=== PATIENT | female | born 1990 | race Caucasian/White ===

== ENCOUNTER → 2019-06-14 | Outpatient (CLI) | payer BC ==
[2019-06-14 15:46] LABS: HCT 37.3 % (34.0-46.0); HGB 12.3 gm/dL (11.4-16.0); MCH 29.1 pg (25.0-35.0); MCHC 32.9 g/dL (31.0-37.0); MCV 88.3 fL (80.0-100.0); Platelet Count 273 k/uL (150-450); RBC 4.23 m/uL (3.80-5.40); RDW 15.3 % (11.5-15.5); WBC 12.6 k/uL (3.8-10.6)
[2019-06-14 15:55] LABS: Uric Acid 4.9 mg/dL (2.9-7.7)
[2019-06-14 23:16] LABS: Total Volume 24 Hour,Urine 2100 mL
[2019-06-14 23:39] LABS: Total Protein 24 Hour,Urine 342.3 mg/24Hr
== END | disposition home or self-care (01) ==
LOC: LABWHC1 10:09 → MERGE 10:09
PROVIDERS: ATTEND Obstetrics & Gynecology Obstetrics
DX: O13.9 Gestational [pregnancy-induced] hypertension without significant proteinuria, unspecified trimester (principal)
CPT/HCPCS: 36415; 81050; 82575; 84156; 84450; 84460; 84550; 85027

== ENCOUNTER 2019-06-17 16:32 | Outpatient (CLI) | payer BC ==
[2019-06-17] MEDS ORDERED: BETAMET ACET-BETAMETH SOD PHOS 6 MG/ML VIAL IM STA (16:39)
--- NOTE | 2019-07-03 14:25 | P.MSEPDOC ---
Presenting Problems - Arrival Data Date of Arrival on Unit: 06/17/19 Time of Arrival on Unit: 16:32 Mode of Transport: Ambulatory - Complaint OB-Reason for Admission/Chief Complaint: Celestone Injection Comment: Pt sent from office for celestone, had NST and US at [facility] Medical History - Information : 4 Para: 0 Term: 0 : 0 Abortions: Spontaneous or Elective: 4 Number of Living Children: 0 - Gestational Age Gestational Age by NANDA (wks/days): 34 Weeks and 2 Days Physician Notification (Pre) - Physician Notified Physician/Practitioner Notifed:: Anupam Spoke With: Anupam New Order Received: Yes - Notification Comment Comment: Dr. Bo called prior to pts arrival, pt to have celestone inj, NST and US completed at [facility]. Disposition - Disposition OB Disposition: Discharge to home, Written follow up instructions reviewed Discharge Date: 06/17/19 Discharge Time: 16:50 I agree with the RN Medical Screening Exam: Yes Risk & Benefit of care provided described in d/c instruction: Yes Diagnosis: GESTATIONAL HTN W/O SIGNIFICANT PROTEINURIA, THIRD TRIMESTER
== END 2019-06-17 16:50 | disposition home or self-care (01) ==
LOC: FBPOP 16:32
PROVIDERS: ATTEND Obstetrics & Gynecology Obstetrics
DX: O13.3 Gestational [pregnancy-induced] hypertension without significant proteinuria, third trimester (principal); Z3A.34 34 weeks gestation of pregnancy

== ENCOUNTER 2019-06-18 17:16 | Inpatient (IN) | payer BC ==
[2019-06-18] MEDS ORDERED: LACTATED RINGERS 1,000 ML IV ONE (17:48)
[2019-06-18] MEDS ORDERED: ACETAMINOPHEN IV (For NPO) 1,000 MG in EMPTY BAG 1 BAG IVPB STA (17:50)
[2019-06-18] MEDS ORDERED: LABETALOL 100 MG TAB PO SCH (18:00)
[2019-06-18] MEDS ORDERED: BETAMET ACET-BETAMETH SOD PHOS 6 MG/ML VIAL IM ONE (18:00)
[2019-06-18 18:18] LABS: Appearance,Urine Clear (Clear); Bilirubin,Urine Negative (Negative); Blood,Urine Negative (Negative); Color,Urine Yellow; Glucose,Urine (UA) Negative (Negative); Ketones,Urine Negative (Negative); Leukocyte Esterase,Urine Negative (Negative); Nitrite,Urine Negative (Negative); PH, Urine 6.5 (5.0-8.0); Protein,Urine Trace (Negative); Specific Gravity,Urine 1.013 (1.001-1.035); Urobilinogen,Urine <2.0 mg/dL (<2.0)
[2019-06-18 18:19] LABS: Basophils # (A) 0.3 k/uL (0-0.2); Basophils % (A) 1 %; Eosinophils # (A) 0.1 k/uL (0-0.7); Eosinophils % (A) 1 %; HCT 35.4 % (34.0-46.0); HGB 11.9 gm/dL (11.4-16.0); Lymphocytes # (A) 2.8 k/uL (1.0-4.8); Lymphocytes % (A) 14 %; MCH 28.9 pg (25.0-35.0); MCHC 33.6 g/dL (31.0-37.0); Monocytes # (A) 1.1 k/uL (0-1.0); Monocytes % (A) 6 %; Neutrophils # (A) 15.1 k/uL (1.3-7.7); Neutrophils % (A) 75 %; Platelet Count 322 k/uL (150-450); RBC 4.11 m/uL (3.80-5.40); RDW 15.1 % (11.5-15.5)
[2019-06-18 18:25] LABS: ALT 34 U/L (9-52); AST 23 U/L (14-36); African American GFR (CKD) >90 (>60 ml/min/1.73 sqM); Blood Urea Nitrogen 10 mg/dL (7-17); LDH 473 U/L (313-618); Non-African American GFR(CKD) >90 (>60 ml/min/1.73 sqM); Uric Acid 5.1 mg/dL (3.7-7.4)
[2019-06-18 18:40] VITALS: BMI 26.9
[2019-06-19] MEDS ORDERED: LABETALOL 100 MG TAB PO SCH (07:00)
[2019-06-19 07:23] LABS: Basophils # (A) 0.1 k/uL (0-0.2); Basophils % (A) 1 %; Eosinophils % (A) 0 %; HCT 33.7 % (34.0-46.0); HGB 11.3 gm/dL (11.4-16.0); Lymphocytes # (A) 1.9 k/uL (1.0-4.8); Lymphocytes % (A) 11 %; MCH 29.7 pg (25.0-35.0); MCHC 33.7 g/dL (31.0-37.0); MCV 88.2 fL (80.0-100.0); Mean Platelet Volume 6.8; Monocytes # (A) 0.8 k/uL (0-1.0); Monocytes % (A) 5 %; Neutrophils # (A) 14.5 k/uL (1.3-7.7); Neutrophils % (A) 82 %; Platelet Count 276 k/uL (150-450); RBC 3.81 m/uL (3.80-5.40); WBC 17.8 k/uL (3.8-10.6)
[2019-06-19 07:27] LABS: ALT 37 U/L (9-52); AST 20 U/L (14-36); African American GFR (CKD) >90 (>60 ml/min/1.73 sqM); Blood Urea Nitrogen 12 mg/dL (7-17); LDH 445 U/L (313-618); Non-African American GFR(CKD) >90 (>60 ml/min/1.73 sqM); Uric Acid 4.6 mg/dL (3.7-7.4)
--- NOTE | 2019-06-19 08:46 | P.HPOB ---
History of Present Illness H&P Date: 06/19/19 Chief Complaint: IUP @ 34 4/7 weeks, gestational HTN This is a 29-year-old at 34-3/7 weeks presented to labor and delivery yesterday for her second Celestone injection. Patient is being watched for gestational hypertension. Patient stated she had a very busy day blood pressures were noted to be elevated 170s over 100s. Blood pressures were noted to improve in the triage 150s/80s. Patient was also complaining of a mild headache which she notes is not unusual for her she has had headaches throughout the . Patient noted good movement she denied any abdominal pain not associated with movement. heart tones were noted to be reactiv e, category 1. Initial preeclampsia labs were negative, trace protein on urine dip. Prior 24-hour urine done 2 days prior 334. Review of Systems Constitutional: Reports fatigue, Denies chills, Denies fever Ears, nose, mouth and throat: Denies headache Cardiovascular: Reports leg edema Respiratory: Denies dyspnea Gastrointestinal: Denies constipation, Denies diarrhea, Denies heartburn, Denies nausea, Denies vomiting Genitourinary: Reports Past Medical History Past Medical History: No Reported History History of Any Multi-Drug Resistant Organisms: None Reported Additional Past Surgical History / Comment(s): breast reduction Past Anesthesia/Blood Transfusion Reactions: No Reported Reaction Past Psychological History: No Psychological Hx Reported Smoking Status: Never smoker Past Alcohol Use History: Occasional Past Drug Use History: None Reported - Past Family History Father Family Medical History: Diabetes Mellitus, Hypertension Medications and Allergies Home Medications Medication Instructions Recorded Confirmed Type Pnv No.95/Ferrous Fum/Folic AC 1 tab PO DAILY 05/19/18 06/18/19 History [ Multivitamin Tablet] Vitamin B Complex 1 cap PO DAILY 05/19/18 06/18/19 History Aspirin [Children's Aspirin] 81 mg PO DAILY 03/26/19 06/18/19 History Labetalol [Trandate] 100 mg PO BID 06/18/19 06/18/19 History Allergies Allergy/AdvReac Type Severity Reaction Status Date / Time No Known Allergies Allergy Verified 06/17/19 16:38 Exam Osteopathic Statement: *. No significant issues noted on an osteopathic structural exam other than those noted in the History and Physical/Consult. 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 Patient is noted to have nonlabored breathing her heart has regular rate and rhythm her blood pressure is 139/78, abdomen is noted to be gravid and appropriate for gestational age, heart tones are category 1 on last NST, no contractions were noted. Patient does note trace lower extremity edema, cervical exam is deferred. Results Result Diagrams: 06/19/19 06:26 06/19/19 06:26 Abnormal Lab Results - Last 24 Hours (Table) 06/18/19 06/18/19 06/19/19 Range/Units 10:07 10:07 06:26 WBC 20.0 H 17.8 H (3.8-10.6) k/uL Hgb 11.3 L (11.4-16.0) gm/dL Hct 33.7 L (34.0-46.0) % Neutrophils # 15.1 H 14.5 H (1.3-7.7) k/uL Monocytes # 1.1 H (0-1.0) k/uL Basophils # 0.3 H (0-0.2) k/uL Urine Protein Trace H (Negative) Assessment and Plan (1) 34 weeks gestation of Current Visit: Yes Status: Acute Code(s): Z3A.34 - 34 WEEKS GESTATION OF SNOMED Code(s): 23918558 (2) Gestational HTN Current Visit: Yes Status: Acute Code(s): O13.9 - GESTATIONAL HTN W/O SI GNIFICANT PROTEINURIA, UNSP TRIMESTER SNOMED Code(s): 685077785 Plan: Labs are reviewed with the patient in this morning, she has responded well to labetalol overnight. Patient states she is feeling well in addition. No change in labs from yesterday to today. We'll monitor this morning, and anticipate discharge later stay on modified bedrest and continued labetalol 100 mg twice a day. We'll plan to reevaluate her clinical status around lunchtime today and make a decision for discharge versus other.
[2019-06-19 12:09] VITALS: BP 167/82; PULSE 97; RESP 16; TEMP 97.5
[2019-06-19] MEDS ORDERED: CALCIUM GLUCONATE 1 GM/10 ML VIAL IV PRN (13:18)
[2019-06-19] MEDS ORDERED: MAGNESIUM SULFATE-WATER PMX 4 GM in WATER FOR INJECTION 1 100ML.BAG IVPB ONE (13:18)
[2019-06-19] MEDS ORDERED: MAGNESIUM SULFATE-WATER PMX 4 GM in WATER FOR INJECTION 1 100ML.BAG IVPB STA (13:23)
--- NOTE | 2019-06-19 13:27 | P.PN ---
Subjective Progress Note Date: 06/19/19 Principal diagnosis: IUP @ 34 4/7 weeks, preeclampsia with severe features. This pleasant 29 -year-old 4 para 0030 at 34-3/7 weeks was admitted last night for elevated blood pressures and monitoring. Patient has received betamethasone 2 last dose was given last evening around 1700. Overnight patient did well on 100 mg of labetalol by mouth, this morning her blood p ressure was 150s over 80s prior to labetalol being given, around 11 she was noted to have blood pressures 167/82, 171/84. She denies headache or abdominal pain at this time. On evaluation the RN did note clonus. Patient states she is feeling well overall and is anxious over the news of transfer given her blood pressure. Transferring facility is contacted and does accept the transfer for preeclampsia with severe features. Magnesium bolus is started a 4 g with a maintenance dose of 2. Objective - Vital Signs Vital signs: Vital Signs Temp 97.5 F L 06/19/19 12:00 Pulse 97 06/19/19 12:00 Resp 16 06/19/19 12:00 BP 167/82 06/19/19 12:00 Pulse Ox 96 06/19/19 07:53 Intake & Output 06/18/19 06/19/19 06/19/19 18:59 06:59 18:59 Weight 73.482 kg Other: # Voids 3 - Constitutional General appearance: Present: average body habitus, cooperative, no acute distress - Respiratory Respiratory: bilateral: CTA - Cardiovascular Rhythm: regular - Gastrointestinal Gastrointestinal Comment(s): Gravid and appropriate for gestational age - Neurologic Neurologic Comment(s): Positive clonus - Psychiatric Psychiatric: Present: A&O x's 3, appropriate affect - Labs CBC & Chem 7: 06/19/19 06:26 06/19/19 06:26 Labs: Abnormal Lab Results - Last 24 Hours (Table) 06/18/19 06/18/19 06/19/19 Range/Units 10:07 10:07 06:26 WBC 20.0 H 17.8 H (3.8-10.6) k/uL Hgb 11.3 L (11.4-16.0) gm/dL Hct 33.7 L (34.0-46.0) % Neutrophils # 15.1 H 14.5 H (1.3-7.7) k/uL Monocytes # 1.1 H (0-1.0) k/uL Basophils # 0.3 H (0-0.2) k/uL Urine Protein Trace H (Negative) Assessment and Plan (1) 34 weeks gestation of Current Visit: Yes Status: Acute Code(s): Z3A.34 - 34 WEEKS GESTATION OF SNOMED Code(s): 42054753 (2) Gestational HTN Current Visit: Yes Status: Acute Code(s): O13.9 - GESTATIONAL HTN W/O SIGNIFICANT PROTEINURIA, UNSP TRIMESTER SNOMED Code(s): 141008343 (3) Preeclampsia Current Visit: Yes Status: Acute Code(s): O14.90 - UNSPECIFIED PRE- ECLAMPSIA, UNSPECIFIED TRIMESTER SNOMED Code(s): 822293978 Plan: Given elevated blood pressures and new onset clonus will plan transfer to [facility] is in [place]. Case was reviewed with the adjoining resident and staff physician does accept the transfer. Magnesium bolus is begun, and we will prepare her for transfer. Patient is informed transfer is secondary to gestational age and need for NICU services. Although upset patient does understand the need for transfer secondary to prematurity and preeclampsia with severe features.
[2019-06-19] MEDS ORDERED: MAGNESIUM SULFATE-WATER PMX 20 GM in WATER FOR INJECTION 1 500ML.BAG IV SCH (13:30)
== END 2019-06-19 14:22 | disposition short-term general hospital (02) | DRG 833 ==
LOC: FBPOP 17:16 → 4FBP 17:48 → OBSVTOIN 06-19 13:56
PROVIDERS: ADMIT Obstetrics & Gynecology Obstetrics; ATTEND Obstetrics & Gynecology Obstetrics
DX: O14.13 Severe pre-eclampsia, third trimester (principal); Z3A.34 34 weeks gestation of pregnancy; Z79.82 Long term (current) use of aspirin; Z82.49 Family history of ischemic heart disease and other diseases of the circulatory system; Z83.3 Family history of diabetes mellitus; Z79.899 Other long term (current) drug therapy
CPT/HCPCS: 59025; 81003; 82565; 83615; 84450; 84460; 84520; 84550; 85025; 99215

== ENCOUNTER → 2020-03-05 | Outpatient (CLI) | payer BC | END | disposition home or self-care (01) | LOC: LABWHC1 09:09 | PROVIDERS: ATTEND Obstetrics & Gynecology Obstetrics | DX: N92.5 Other specified irregular menstruation (principal) | CPT/HCPCS: 36415; 84702 ==

== ENCOUNTER → 2020-03-23 | Outpatient (CLI) | payer BC | END | disposition home or self-care (01) | LOC: LABWHC1 10:27 | PROVIDERS: ATTEND Pediatrics Pediatric Infectious Diseases | DX: Z11.59 Encounter for screening for other viral diseases (principal) | CPT/HCPCS: U0003; C9803 ==

== ENCOUNTER → 2020-03-24 | Outpatient (CLI) | payer BC | END | disposition home or self-care (01) | LOC: LABWHC1 14:05 | PROVIDERS: ATTEND Pediatrics Pediatric Infectious Diseases | DX: Z11.59 Encounter for screening for other viral diseases (principal) | CPT/HCPCS: U0003; C9803 ==

== ENCOUNTER → 2020-04-16 | Outpatient (CLI) | payer BC ==
--- NOTE | 2020-04-16 10:38 | US ---
EXAMINATION TYPE: Transabdominal DATE OF EXAM: 04/16/2020 10:22 AM COMPARISON: NONE CLINICAL HISTORY: O46.91 Bleeding spotting. Pt states light vaginal bleeding EXAM PERFORMED: Transabdominal (TA) EXAM MEASUREMENTS: GESTATIONAL AGE / DATING Physician Established: (9 weeks/4 days) EDC: 11/15/2020 Dates by LMP: Unknown Dates by First Scan: No prior Dates by Current Scan for: (10 weeks/4 days) EDC: 11/08/2020 MATERNAL ANATOMY Uterus: 9.3 x 6.2 x 7.1 cm Right Ovary: 2.8 x 1.5 x 1.6 cm Left Ovary: 3.2 x 2.3 x 3.1 Post CDS / Adnexa: wnl Presence of free fluid: No Presence of corpus luteal cyst: 2.1 x 1.6 x 2.2 cm Presence of subchorionic bleed: Possible small bleed= 1.7 x 0.4 x 1.5 cm GESTATION / SURVEY CRL: 2.4 10 weeks/ 4 days) MSD: wnl Yolk Sac (normal less than 6mm): 5mm Heart Rate: 160 bpm Rhythm: Normal IUP: Viable IUP Single, viable IUP/ Possible small sub-chorionic bleed, otherwise no significant abnormality visual ized Results called to Chuck at 's office at time of exam IMPRESSION: Single viable intrauterine of 10 weeks 4 days with a heart rate of 160 bpm. Small 1.7 cm condon bchorionic hemorrhage suspected.
== END | disposition home or self-care (01) ==
LOC: RADUSWWP 10:00
PROVIDERS: ATTEND Obstetrics & Gynecology Obstetrics
DX: O46.91 Antepartum hemorrhage, unspecified, first trimester (principal); Z3A.10 10 weeks gestation of pregnancy
CPT/HCPCS: 76801

== ENCOUNTER 2020-05-25 12:10 | Observation (INO) | payer BC ==
[2020-05-25] MEDS ORDERED: SODIUM CHLORIDE 0.9% 500 ML 500 ML IV ONE (12:40)
[2020-05-25 13:28] LABS: Basophils # (A) 0.1 k/uL (0-0.2); Basophils % (A) 1 %; Eosinophils # (A) 0.1 k/uL (0-0.7); Eosinophils % (A) 1 %; HGB 14.4 gm/dL (11.4-16.0); Lymphocytes # (A) 2.3 k/uL (1.0-4.8); Lymphocytes % (A) 17 %; MCH 28.7 pg (25.0-35.0); MCHC 33.6 g/dL (31.0-37.0); MCV 85.5 fL (80.0-100.0); Mean Platelet Volume 7.2; Monocytes # (A) 0.7 k/uL (0-1.0); Monocytes % (A) 5 %; Neutrophils % (A) 75 %; Platelet Count 332 k/uL (150-450); RBC 5.03 m/uL (3.80-5.40); RDW 13.3 % (11.5-15.5); WBC 13.3 k/uL (3.8-10.6)
--- NOTE | 2020-05-25 13:36 | ED ---
General Adult HPI - General Chief complaint: Abdominal Pain Stated complaint: Poss Appendix Time Seen by Provider: 05/25/20 12:39 Source: patient, RN notes reviewed, old records reviewed Mode of arrival: ambulatory Limitations: no limitations - History of Present Illness Initial comments: 29-year-old female currently 15 weeks presenting for evaluation of right lower quadrant abdominal pain. Patient was sent over by her public health director for evaluation of pain and concern for appendicitis. She had heart tones in the office which were within normal limits according to Dr. Bo. Patient developed abdominal pain and diarrhea yesterday evening approximately one hour after eating salad. She has persistent nausea throughout this . She denies fever. Pain is predominantly right lower quadrant. - Related Data Home Medications Medication Instructions Recorded Confirmed Pnv No.95/Ferrous Fum/Folic AC 1 tab PO DAILY 05/19/18 05/25/20 [ Multivitamin Tablet] Vitamin B Complex 1 cap PO DAILY 05/19/18 05/25/20 Aspirin [Children's Aspirin] 81 mg PO DAILY 03/26/19 05/25/20 valACYclovir [Valtrex] 500 mg PO DAILY PRN 05/25/20 05/25/20 Allergies Allergy/AdvReac Type Severity Reaction Status Date / Time No Known Allergies Allergy Verified 05/25/20 13:20 Review of Systems ROS Statement: Those systems with pertinent positive or pertinent negative responses have been documented in the HPI. ROS Other: All systems not noted in ROS Statement are negative. Past Medical History Past Medical History: No Reported History Additional Past Medical History / Comment(s): preeclampsia History of Any Multi-Drug Resistant Organisms: None Reported Additional Past Surgical History / Comment(s): breast reduction Past Anesthesia/Blood Transfusion Reactions: No Reported Reaction Past Psychological History: No Psychological Hx Reported Past Alcohol Use History: Occasional Past Drug Use History: None Reported - Past Family History Father Family Medical History: Diabetes Mellitus, Hypertension General Exam Limitations: no limitations General appearance: alert, in no apparent distress Head exam: Present: atraumatic, normocephalic Eye exam: Present: normal appearance, PERRL ENT exam: Present: mucous membranes dry Neck exam: Present: normal inspection. Absent: tenderness, meningismus Respiratory exam: Present: normal lung sounds bilaterally. Absent: respiratory distress, wheezes Cardiovascular Exam: Present: normal rhythm, tachycardia GI/Abdominal exam: Present: soft, tenderness (focal right lower quadrant tenderness to palpation). Absent: distended, guarding, rebound Extremities exam: Present: normal inspection, normal capillary refill. Absent: pedal edema, calf tenderness Neurological exam: Present: alert, oriented X3, CN II-XII intact. Absent: motor sensory deficit Psychiatric exam: Present: normal affect, normal mood Skin exam: Present: warm, dry, intact. Absent: cyanosis, diaphoretic Course Vital Signs 05/25/20 12:19 Temperature 98.9 F Pulse Rate 114 H Respiratory 20 Rate Blood Pressure 145/88 O2 Sat by Pulse 98 Oximetry Medical Decision Making - Medical Decision Making 29 -year-old female presenting with chief complaint of abdominal pain. Patient was sent in by her public health director for evaluation of appendicitis. She has a history and exam that are concerning for appendicitis. She is 15 weeks . Ultrasound is performed, shows mild right lower quadrant inflammatory change and dilated appendix at 14 mm. Patient is started on antibiotics. She has requested Dr. Dorantes who is able to evaluate the patient in the emergency department. - Lab Data Result diagrams: 05/25/20 13:08 05/25/20 13:08 Lab Results 05/25/20 05/25/20 05/25/20 Range/Units 13:08 13:08 13:08 WBC 13.3 H (3.8-10.6) k/uL RBC 5.03 (3.80-5.40) m/uL Hgb 14.4 (11.4-16.0) gm/dL Hct 43.0 (34.0-46.0) % MCV 85.5 (80.0-100.0) fL MCH 28.7 (25.0-35.0) pg MCHC 33.6 (31.0-37.0) g/dL RDW 13.3 (11.5-15.5) % Plt Count 332 (150-450) k/uL Neutrophils % 75 % Lymphocytes % 17 % Monocytes % 5 % Eosinophils % 1 % Basophils % 1 % Neutrophils # 10.0 H (1.3-7.7) k/uL Lymphocytes # 2.3 (1.0-4.8) k/uL Monocytes # 0.7 (0-1.0) k/uL Eosinophils # 0.1 (0-0.7) k/uL Basophils # 0.1 (0-0.2) k/uL PT 9.3 (9.0-12.0) sec INR 0.9 (<1.2) APTT 23.8 (22.0-30.0) sec Sodium (137-145) mmol/L Potassium (3.5-5.1) mmol/L Chloride (98-107) mmol/L Carbon Dioxide (22-30) mmol/L Anion Gap mmol/L BUN (7-17) mg/dL Creatinine (0.52-1.04) mg/dL Est GFR (CKD-EPI)AfAm (>60 ml/min/1.73 sqM) Est GFR (CKD-EPI)NonAf (>60 ml/min/1.73 sqM) Glucose (74-99) mg/dL Plasma Lactic Acid Corey (0.7-2.0) mmol/L Calcium (8.4-10.2) mg/dL Total Bilirubin (0.2-1.3) mg/dL AST (14-36) U/L ALT (4-34) U/L Alkaline Phosphatase (38-126) U/L Total Protein (6.3-8.2) g/dL Albumin (3.5-5.0) g/dL Amylase (30-110) U/L Lipase (23-300) U/L Urine Color Yellow Urine Appearance Cloudy H (Clear) Urine pH 7.5 (5.0-8.0) Ur Specific [place] 1.026 (1.001-1.035) Urine Protein Trace H (Negative) Urine Glucose (UA) Negative (Negative) Urine Ketones Trace H (Negative) Urine Blood Negative (Negative) Urine Nitrite Negative (Negative) Urine Bilirubin Negative (Negative) Urine Urobilinogen <2.0 (<2.0) mg/dL Ur Leukocyte Esterase Trace H (Negative) Urine RBC 5 (0-5) /hpf Urine WBC 3 (0-5) /hpf Ur Squamous Epith Cells 10 H (0-4) /hpf Calcium Oxalate Crystal Occasional H (None) /hpf Amorphous Sediment Rare H (None) /hpf Urine Bacteria Rare H (None) /hpf Hyaline Casts 1 (0-2) /lpf Urine Mucus Few H (None) /hpf 05/25/20 05/25/20 Range/Units 13:08 13:08 WBC (3.8-10.6) k/uL RBC (3.80-5.40) m/uL Hgb (11.4-16.0) gm/dL Hct (34.0-46.0) % MCV (80.0-100.0) fL MCH (25.0-35.0) pg MCHC (31.0-37.0) g/dL RDW (11.5-15.5) % Plt Count (150-450) k/uL Neutrophils % % Lymphocytes % % Monocytes % % Eosinophils % % Basophils % % Neutrophils # (1.3-7.7) k/uL Lymphocytes # (1.0-4.8) k/uL Monocytes # (0-1.0) k/uL Eosinophils # (0-0.7) k/uL Basophils # (0-0.2) k/uL PT (9.0-12.0) sec INR (<1.2) APTT (22.0-30.0) sec Sodium 138 (137-145) mmol/L Potassium 4.2 (3.5-5.1) mmol/L Chloride 106 (98-107) mmol/L Carbon Dioxide 23 (22-30) mmol/L Anion Gap 9 mmol/L BUN 12 (7-17) mg/dL Creatinine 0.72 (0.52-1.04) mg/dL Est GFR (CKD-EPI)AfAm >90 (>60 ml/min/1.73 sqM) Est GFR (CKD-EPI)NonAf >90 (>60 ml/min/1.73 sqM) Glucose 90 (74-99) mg/dL Plasma Lactic Acid Corey 0.8 (0.7-2.0) mmol/L Calcium 9.6 (8.4-10.2) mg/dL Total Bilirubin 0.8 (0.2-1.3) mg/dL AST 18 (14-36) U/L ALT 14 (4-34) U/L Alkaline Phosphatase 68 (38-126) U/L Total Protein 7.6 (6.3-8.2) g/dL Albumin 4.3 (3.5-5.0) g/dL Amylase 60 (30-110) U/L Lipase 61 (23-300) U/L Urine Color Urine Appearance (Clear) Urine pH (5.0-8.0) Ur Specific [place] (1.001-1.035) Urine Protein (Negative) Urine Glucose (UA) (Negative) Urine Ketones (Negative) Urine Blood (Negative) Urine Nitrite (Negative) Urine Bilirubin (Negative) Urine Urobilinogen (<2.0) mg/dL Ur Leukocyte Esterase (Negative) Urine RBC (0-5) /hpf Urine WBC (0-5) /hpf Ur Squamous Epith Cells (0-4) /hpf Calcium Oxalate Crystal (None) /hpf Amorphous Sediment (None) /hpf Urine Bacteria (None) /hpf Hyaline Casts (0-2) /lpf Urine Mucus (None) /hpf Disposition Clinical Impression: Acute appendicitis Disposition: ADMITTED IP TO THIS [facility] Condition: Stable Is patient prescribed a controlled substance at d/c from ED?: No Referrals: None,Stated [Primary Care Provider] - 1-2 days Decision to Admit Reason: Admit from EC Decision Date: 05/25/20 Decision Time: 14:24
[2020-05-25 13:40] LABS: ALT 14 U/L (4-34); AST 18 U/L (14-36); African American GFR (CKD) >90 (>60 ml/min/1.73 sqM); Albumin 4.3 g/dL (3.5-5.0); Alkaline Phosphatase 68 U/L (38-126); Amorphous Sediment,Urine Rare /hpf; Amylase 60 U/L (30-110); Anion Gap 9 mmol/L; Appearance,Urine Cloudy (Clear); Bacteria,Urine Rare /hpf; Bilirubin,Urine Negative (Negative); Blood Urea Nitrogen 12 mg/dL (7-17); Blood,Urine Negative (Negative); Calcium 9.6 mg/dL (8.4-10.2); Calcium Oxalate Crystals,Urine Occasional /hpf; Carbon Dioxide 23 mmol/L (22-30); Chloride 106 mmol/L (98-107); Color,Urine Yellow; Glucose 90 mg/dL (74-99); Glucose,Urine (UA) Negative (Negative); Hyaline Casts,Urine 1 /lpf (0-2); Ketones,Urine Trace (Negative); Leukocyte Esterase,Urine Trace (Negative); Mucus,Urine Few /hpf; Nitrite,Urine Negative (Negative); Non-African American GFR(CKD) >90 (>60 ml/min/1.73 sqM); PH, Urine 7.5 (5.0-8.0); Potassium 4.2 mmol/L (3.5-5.1); Protein,Urine Trace (Negative); RBC,Urine 5 /hpf (0-5); Sodium 138 mmol/L (137-145); Specific Gravity,Urine 1.026 (1.001-1.035); Squamous Epithelial Cell,Urine 10 /hpf (0-4); Total Bilirubin 0.8 mg/dL (0.2-1.3); Total Protein 7.6 g/dL (6.3-8.2); Urobilinogen,Urine <2.0 mg/dL (<2.0); WBC,Urine 3 /hpf (0-5)
--- NOTE | 2020-05-25 13:57 | US ---
EXAMINATION TYPE: US abdomen APPY DATE OF EXAM: 05/25/2020 COMPARISON: NONE CLINICAL HISTORY: rlq pain in . RLQ and RUQ pain x 2 days, slightly elevated WBC 13, patient is 15 weeks APPENDIX AP Diameter (normal < 6mm): 14 mm Measured outer wall to outer wall. Is the appendix seen in its entirety from the proximal cecum to distal end: no Is the appendix compressible: yes, compresses to 7mm which is upper limits of normal Does the appendix wall appear hypervascular: no Is an appendicolith present: no Is there inflammatory changes or free fluid present: no Tubular structure within RLQ appears to be enlarged appendix. peristalsing seen below structure not w ithin. IMPRESSION: 1. Appendix measures greater than 6 mm. Maximal dimension is 14 mm. Appendicitis would be in the diff erential diagnosis correlate clinically.
[2020-05-25] MEDS ORDERED: PIPERACILLIN-TAZOBACTAM 3.375 GM in SODIUM CHLORIDE 0.9% 100 ML IVPB STA (14:06)
[2020-05-25 14:09] LABS: INR 0.9 (<1.2); Partial Thromboplastin Time 23.8 sec (22.0-30.0); Prothrombin Time 9.3 sec (9.0-12.0)
[2020-05-25] MEDS ORDERED: NALOXONE 0.4 MG/ML 1 ML VIAL IV PRN ×2 (14:37→16:55)
--- NOTE | 2020-05-25 14:39 | US ---
EXAMINATION TYPE: US abdomen limited DATE OF EXAM: 05/25/2020 COMPARISON: 12/02/2012 CLINICAL HISTORY: ABD PAIN. RUQ pain EXAM MEASUREMENTS: Liver Length: 15.7 cm Gallbladder Wall: 0.1 cm CBD: 0.5 cm Right Kidney: 10.4 x 5.1 x 4.7 cm Pancreas: wnl Liver: 3.5cm hyperechoic medial left lobe lesion, probable hemangioma Gallbladder: 2 stones seen, 0.8cm, no wall thickness Evidence for sonographic Bernabe's sign: no CBD: wnl Right Kidney: wnl IMPRESSION: 1. There is a hyperechoic lesion left lobe of the liver measuring 3.5 cm. Most likely etiology is a h emangioma. However, finding was not seen on a prior CT scan 2012. Therefore, CT of the abdomen is rec ommended with hemangioma protocol 2. Cholelithiasis .
[2020-05-25] MEDS ORDERED: SODIUM CHLORIDE 0.9% 1,000 ML IV SCH (14:45)
[2020-05-25] MEDS ORDERED: HEPARIN SODIUM,PORCINE 5,000 UNIT/ML 1 ML VIAL SQ STA (15:01)
--- NOTE | 2020-05-25 15:18 | P.GSHP ---
History of Present Illness H&P Date: 05/25/20 This is a 29-year-old female who presented to the emergency department with a chief complaint of right lower quadrant pain which began yesterday 4 PM. Patient is she is currently 15 weeks . Patient has never had abdominal surgery before in the past. She denies any nausea vomiting she was having some diarrhea. She states she has not been hungry she has not eaten anything this morning. Patient states the pain has been pretty constant in her right lower quadrant hurts worse when she moves. Patient has no significant past medical history other than preeclampsia during her previous . Past Medical History Past Medical History: No Reported History Additional Past Medical History / Comment(s): preeclampsia History of Any Multi-Drug Resistant Organisms: None Reported Additional Past Surgical History / Comment(s): breast reduction Past Anesthesia/Blood Transfusion Reactions: No Reported Reaction Past Psychological History: No Psychological Hx Reported Past Alcohol Use History: Occasional Past Drug Use History: None Reported - Past Family History Father Family Medical History: Diabetes Mellitus, Hypertension Medications and Allergies Home Medications Medication Instructions Recorded Confirmed Type Pnv No.95/Ferrous Fum/Folic AC 1 tab PO DAILY 05/19/18 05/25/20 History [ Multivitamin Tablet] Vitamin B Complex 1 cap PO DAILY 05/19/18 05/25/20 History Aspirin [Children's Aspirin] 81 mg PO DAILY 03/26/19 05/25/20 History valACYclovir [Valtrex] 500 mg PO DAILY PRN 05/25/20 05/25/20 History Allergies Allergy/AdvReac Type Severity Reaction Status Date / Time No Known Allergies Allergy Verified 05/25/20 13:20 Surgical - Exam Osteopathic Statement: *. No significant issues noted on an osteopathic structural exam other than those noted in the History and Physical/Consult. Vital Signs Temp Pulse Resp BP Pulse Ox 98.9 F 114 H 20 145/88 98 05/25/20 12:19 05/25/20 12:05/25/20 12:05/25/20 12:05/25/20 12:19 - General well developed, well nourished, no distress - Eyes PERRL - Neck trachea midline - Respiratory normal expansion, normal respiratory effort - Cardiovascular Rhythm: regular - Abdomen Soft nondistended tender to palpation in the right lower quadrant positive rebound no rigidity no guarding - Neurologic normal coordination, normal sensation - Musculoskeletal normal gait - Psychiatric oriented to time, oriented to person, oriented to place Results - Labs 05/25/20 13:08 05/25/20 13:08 Abnormal Lab Results - Last 24 Hours (Table) 05/25/20 05/25/20 Range/Units 13:08 13:08 WBC 13.3 H (3.8-10.6) k/uL Neutrophils # 10.0 H (1.3-7.7) k/uL Urine Appearance Cloudy H (Clear) Urine Protein Trace H (Negative) Urine Ketones Trace H (Negative) Ur Leukocyte Esterase Trace H (Negative) Ur Squamous Epith Cells 10 H (0-4) /hpf Calcium Oxalate Crystal Occasional H (None) /hpf Amorphous Sediment Rare H (None) /hpf Urine Bacteria Rare H (None) /hpf Urine Mucus Few H (None) /hpf Diabetes panel 05/25/20 Range/Units 13:08 Sodium 138 (137-145) mmol/L Potassium 4.2 (3.5-5.1) mmol/L Chloride 106 (98-107) mmol/L Carbon Dioxide 23 (22-30) mmol/L BUN 12 (7-17) mg/dL Creatinine 0.72 (0.52-1.04) mg/dL Glucose 90 (74-99) mg/dL Calcium 9.6 (8.4-10.2) mg/dL AST 18 (14-36) U/L ALT 14 (4-34) U/L Alkaline Phosphatase 68 (38-126) U/L Total Protein 7.6 (6.3-8.2) g/dL Albumin 4.3 (3.5-5.0) g/dL Calcium panel 05/25/20 Range/Units 13:08 Calcium 9.6 (8.4-10.2) mg/dL Albumin 4.3 (3.5-5.0) g/dL Pituitary panel 05/25/20 Range/Units 13:08 Sodium 138 (137-145) mmol/L Potassium 4.2 (3.5-5.1) mmol/L Chloride 106 (98-107) mmol/L Carbon Dioxide 23 (22-30) mmol/L BUN 12 (7-17) mg/dL Creatinine 0.72 (0.52-1.04) mg/dL Glucose 90 (74-99) mg/dL Calcium 9.6 (8.4-10.2) mg/dL Adrenal panel 05/25/20 Range/Units 13:08 Sodium 138 (137-145) mmol/L Potassium 4.2 (3.5-5.1) mmol/L Chloride 106 (98-107) mmol/L Carbon Dioxide 23 (22-30) mmol/L BUN 12 (7-17) mg/dL Creatinine 0.72 (0.52-1.04) mg/dL Glucose 90 (74-99) mg/dL Calcium 9.6 (8.4-10.2) mg/dL Total Bilirubin 0.8 (0.2-1.3) mg/dL AST 18 (14-36) U/L ALT 14 (4-34) U/L Alkaline Phosphatase 68 (38-126) U/L Total Protein 7.6 (6.3-8.2) g/dL Albumin 4.3 (3.5-5.0) g/dL Assessment and Plan Assessment: Acute appendicitis in Plan: This diagnosis was discussed extensively with the patient and the patient's . Given the location duration and presentation of the patient's pain all along with an ultrasound that showed an appendix measuring 14 mm I discussed with the patient laparoscopic appendectomy. The risks benefits and alternatives to the procedure were discussed with the patient including risks of bleeding infection damage to surrounding tissue need for further operation. I discussed with her the specific risks of undergoing surgery while and undergoing anesthesia well does put her at higher risk and possible loss of . Patient stated she understood this. This case was also discussed the patient's director television Dr. Bo who was in agreement with the diagnosis and treatment plan. Patient will be admitted postoperatively to the OB unit for observation. We will proceed with laparoscopic appendectomy. Patient be kept nothing by mouth and started on IV antibiotics which were given in the emergency department. Further recommendations to follow
[2020-05-25] MEDS ORDERED: LACTATED RINGERS 1,000 ML IV ONE (15:32)
[2020-05-25] MEDS ORDERED: GLYCOPYRROLATE 0.2 MG/ML 2 ML VIAL ONE (15:35)
[2020-05-25] MEDS ORDERED: ROCURONIUM BROMIDE 10 MG/ML 5 ML VIAL IV ONE (15:35)
[2020-05-25] MEDS ORDERED: ONDANSETRON 4 MG/2 ML VIAL ONE (15:35)
[2020-05-25] MEDS ORDERED: PROPOFOL 10 MG/ML 20 ML VIAL IV ONE (15:35)
[2020-05-25] MEDS ORDERED: LIDOCAINE 1% INJ 10MG/ML (20 ML MDV) ONE (15:35)
[2020-05-25] MEDS ORDERED: HEPARIN SODIUM,PORCINE 5,000 UNIT/ML 1 ML VIAL ONE (15:35)
[2020-05-25] MEDS ORDERED: NEOSTIGMINE 1 MG/ML 10 ML VIAL ONE (15:35)
[2020-05-25] MEDS ORDERED: SUCCINYLCHOLINE CHLORIDE 100 MG/5 ML SYR IV ONE (15:35)
[2020-05-25] MEDS ORDERED: MIDAZOLAM 2 MG/2 ML VIAL ONE (15:35)
[2020-05-25] MEDS ORDERED: BUPIVACAINE (PF) 0.25% 30 ML VIAL SQ ONE ×2 (16:04)
[2020-05-25] MEDS ORDERED: fentaNYL (PF) 50 MCG/ML 2 ML AMP IVP ONE ×3 (16:45→17:02)
[2020-05-25] MEDS ORDERED: ONDANSETRON 4 MG/2 ML VIAL IVP ONE (16:53)
[2020-05-25] MEDS ORDERED: ONDANSETRON 4 MG/2 ML VIAL IVP PRN (16:55)
[2020-05-25] MEDS ORDERED: HYDROmorphone 0.5 MG/0.5 ML SYRINGE IVP PRN (16:55)
--- NOTE | 2020-05-25 16:55 | P.OP ---
Date of Procedure: 05/25/20 Preoperative Diagnosis: Acute appendicitis in Postoperative Diagnosis: Same Procedure(s) Performed: Laparoscopic appendectomy Anesthesia: ISAK Surgeon: Stevan Dorantes Estimated Blood Loss (ml): 5 Pathology: other (Appendix) Condition: stable Disposition: PACU Description of Procedure: Patient was brought to the operative suite remained in the supine position underwent general endotracheal anesthesia per Department of anesthesia she was prepped and draped in the usual sterile fashion timeout was performed correct patient correct procedure correct site was verified. A 5 mm incision was made at pal[place] point in the left upper quadrant. Using a 5 mm Visiport the abdomen was entered under direct visualization and insufflated. No injuries were noted. The abdomen was inspected the uterus was enlarged as expected for 15 week . Just inferior to the umbilicus a 5 mm incision was made and the port was placed under direct visualization. This was done being sure to avoid the uterus which is further down in the pelvis. A 12 mm incision was made in the left midabdomen and under direct visualization a 12 mm port was placed. The patient was placed head down right side up and the appendix is visualized noted to be acutely inflamed. The mesoappendix is taken down with the LigaSure device hemostasis was noted. The base of the appendix was stapled across at the base of the cecum using a 60 mm purple load Endo TRACEY stapler. Hemostasis was noted along the staple line. The gallbladder was inspected and noted to be healthy robins egg blue. The appendix was removed through the 12 mm port site in an Endo Catch bag and sent to pathology. Hemostasis was once again noted the 12 mm port site fascia was closed with an 0 Vicryl with the aid of a Sage-Augustus suture passer. The abdomen was desufflated all ports removed under direct visualization and the skin was closed with 4-0 Monocryl suture. Skin glue was applied patient tolerated the procedure well there are no apparent complications
[2020-05-25] MEDS ORDERED: ACETAMINOPHEN IV (For NPO) 1,000 MG in EMPTY BAG 1 BAG IVPB STA (18:04)
[2020-05-25] MEDS ORDERED: PIPERACILLIN-TAZOBACTAM 3.375 GM in SODIUM CHLORIDE 0.9% 100 ML IVPB SCH (20:00)
[2020-05-25 20:26] VITALS: RESP 16
[2020-05-25] MEDS: DOCUSATE 100 MG CAP PO SCH (21:03)
[2020-05-26] MEDS ORDERED: SIMETHICONE 80 MG CHEWABLE PO PRN (00:08)
[2020-05-26] MEDS: ACETAMINOPHEN TAB 325 MG TAB PO PRN ×2 (00:15→05:28)
[2020-05-26] MEDS: LACTATED RINGERS 1,000 ML IV SCH ×2 (01:19→06:39)
[2020-05-26 08:51] VITALS: BP 127/65; PULSE 78; TEMP 98
[2020-05-26] MEDS: DOCUSATE 100 MG CAP PO SCH (09:01)
[2020-05-26 09:26] LABS: Basophils % (A) 0 %; Eosinophils # (A) 0.1 k/uL (0-0.7); Eosinophils % (A) 1 %; HCT 34.3 % (34.0-46.0); HGB 11.5 gm/dL (11.4-16.0); Lymphocytes # (A) 2.1 k/uL (1.0-4.8); Lymphocytes % (A) 22 %; MCH 28.8 pg (25.0-35.0); MCHC 33.4 g/dL (31.0-37.0); Mean Platelet Volume 7.3; Monocytes # (A) 0.6 k/uL (0-1.0); Monocytes % (A) 6 %; Neutrophils # (A) 6.4 k/uL (1.3-7.7); Neutrophils % (A) 69 %; Platelet Count 280 k/uL (150-450); RBC 3.99 m/uL (3.80-5.40); RDW 13.9 % (11.5-15.5); WBC 9.3 k/uL (3.8-10.6)
== END 2020-05-26 10:55 | disposition home or self-care (01) ==
LOC: EC 12:10 → 4FBP 14:37
PROVIDERS: ADMIT Student in an Organized Health Care Education/Training Program; ATTEND Student in an Organized Health Care Education/Training Program
DX: O99.612 Diseases of the digestive system complicating pregnancy, second trimester (principal); K35.80 Unspecified acute appendicitis; Z3A.15 15 weeks gestation of pregnancy
CPT/HCPCS: 44970; 99285; 36415; 81025; 88304; 80053; 82150; 83605; 83690; 85025 ×2; 85610; 85730; 81001; 76705; G0378 ×2; J2543; J2250; J1644; J2710; J2405; J2001; J3010; J0131; J0330; J2704

== ENCOUNTER 2020-10-14 10:07 | Inpatient (IN) | payer BC ==
[2020-10-14 10:55] LABS: Appearance,Urine Cloudy (Clear); Bacteria,Urine Rare /hpf; Bilirubin,Urine Negative (Negative); Blood,Urine Negative (Negative); Color,Urine Light Yellow; Glucose,Urine (UA) Negative (Negative); Hyaline Casts,Urine 1 /lpf (0-2); Ketones,Urine Negative (Negative); Leukocyte Esterase,Urine Large (Negative); Nitrite,Urine Negative (Negative); Protein,Urine Negative (Negative); RBC,Urine 1 /hpf (0-5); Specific Gravity,Urine 1.005 (1.001-1.035); Squamous Epithelial Cell,Urine 5 /hpf (0-4); Urobilinogen,Urine <2.0 mg/dL (<2.0); WBC,Urine 6 /hpf (0-5)
[2020-10-14 11:07] LABS: Basophils % (A) 0 %; Eosinophils # (A) 0.1 k/uL (0-0.7); Eosinophils % (A) 1 %; HCT 38.9 % (34.0-46.0); HGB 13.2 gm/dL (11.4-16.0); Lymphocytes % (A) 17 %; MCH 29.2 pg (25.0-35.0); MCHC 33.8 g/dL (31.0-37.0); MCV 86.2 fL (80.0-100.0); Mean Platelet Volume 7.8; Monocytes # (A) 0.5 k/uL (0-1.0); Monocytes % (A) 4 %; Neutrophils # (A) 9.1 k/uL (1.3-7.7); Neutrophils % (A) 76 %; Platelet Count 243 k/uL (150-450); RBC 4.51 m/uL (3.80-5.40); WBC 11.9 k/uL (3.8-10.6)
[2020-10-14 11:09] LABS: Creatinine,Urine Random 31.8 mg/dL; Protein/Creatinine Ratio,Urine 0.566
[2020-10-14] MEDS: BETAMET ACET-BETAMETH SOD PHOS 6 MG/ML MDV IM SCH (11:11)
[2020-10-14 11:14] LABS: ALT 23 U/L (4-34); AST 23 U/L (14-36); African American GFR (CKD) >90 (>60 ml/min/1.73 sqM); Blood Urea Nitrogen 9 mg/dL (7-17); LDH 485 U/L (313-618); Non-African American GFR(CKD) >90 (>60 ml/min/1.73 sqM); Uric Acid 5.6 mg/dL (3.7-7.4)
[2020-10-14] MEDS ORDERED: LABETALOL 5 MG/ML VIAL MDV IVP PRN ×2 (13:01)
[2020-10-14] MEDS ORDERED: hydrALAZINE HCL 20 MG/ML 1 ML VIAL IVP PRN ×2 (13:01)
[2020-10-14] MEDS ORDERED: CITRIC ACID-SODIUM CITRATE 15 ML CUP PO ONE (13:03)
[2020-10-14] MEDS: LACTATED RINGERS 1,000 ML IV SCH ×2 (13:13→17:23)
[2020-10-14 13:28] LABS: INR 0.9 (<1.2); Prothrombin Time 9.4 sec (9.0-12.0)
[2020-10-14] MEDS ORDERED: fentaNYL (PF) 50 MCG/ML 2 ML AMP ONE (17:31)
[2020-10-14] MEDS ORDERED: MORPHINE SULFATE (PF) 0.3 MG/0.3 ML SYR ONE (17:31)
[2020-10-14] MEDS ORDERED: ONDANSETRON 4 MG/2 ML VIAL ONE (17:31)
[2020-10-14] MEDS ORDERED: KETOROLAC 15 MG/ML 1 ML VIAL ONE (17:31)
[2020-10-14] MEDS ORDERED: OXYTOCIN 10 UNIT/ML 1 ML VIAL ONE (17:31)
[2020-10-14] MEDS ORDERED: diphenhydrAMINE 50 MG CAP PO PRN (18:26)
[2020-10-14] MEDS ORDERED: SIMETHICONE 80 MG CHEWABLE PO PRN (18:26)
[2020-10-14] MEDS ORDERED: ACETAMINOPHEN IV (For NPO) 1,000 MG in EMPTY BAG 1 BAG IVPB ONE (18:26)
[2020-10-14] MEDS ORDERED: NALOXONE 0.4 MG/ML 1 ML VIAL IV PRN (18:26)
[2020-10-14] MEDS ORDERED: diphenhydrAMINE 25 MG CAP PO PRN (18:26)
[2020-10-14] MEDS ORDERED: diphenhydrAMINE 50 MG/ML 1 ML VIAL IVP PRN (18:26)
[2020-10-14] MEDS ORDERED: ZOLPIDEM 5 MG TAB PO PRN (18:26)
[2020-10-14] MEDS ORDERED: ONDANSETRON 4 MG/2 ML VIAL IVP PRN (18:26)
[2020-10-14] MEDS ORDERED: METOCLOPRAMIDE 5 MG/ML 2 ML VIAL IVP PRN (18:26)
[2020-10-14] MEDS ORDERED: OXYTOCIN 30 UNITS/500 ML NS 30 UNIT in SALINE 1 500ML.BAG IV SCH (18:30)
--- NOTE | 2020-10-14 18:30 | P.HPOB ---
History of Present Illness H&P Date: 10/14/20 Chief Complaint: IUP @ 35 3/7 weeks, severe preeclampsia This is a 30-year-old at 35-3/7 weeks that presented to the office this morning for routine visit. Patient underwent nonstress test which was felt to be reactive. Patient states she has been having elevated blood pressures at home 150s to 160s over 90s. Patient stated she had a headache last evening when she took her blood pressure. Patient slept well overnight and presented to the office. Normal blood pressure was noted in the office. Given patient's elevated blood pressures at home and headache patient was sent to OB triage for serial blood pressures, preeclampsia labs, nonstress test. Blood pressures on OB were noted to be significantly elevated 150s to 160s over high 90s. Patient did have a reactive NST. Preeclampsia labs were noted to be negative. Protein creatinine ratio was noted to be elevated at 0.5. Patient does have a history of a 34-6/7 weeks' delivery secondary to severe preeclampsia. Patient is noted to be in footling breech presentation In addition patient underwent appendectomy early in and was ultimately diagnosed with COVID in addition. On bloodwork patient is a blood type of A+, rubella status immune, B surface antigen negative, HIV negative, GBS was unknown but collected today. Review of Systems Constitutional: Reports fatigue, Denies chills, Denies fever Ears, nose, mouth and throat: Reports headache Cardiovascular: Reports leg edema Respiratory: Denies dyspnea Gastrointestinal: Reports nausea, Denies constipation, Denies diarrhea, Denies vomiting Genitourinary: Reports Past Medical History Past Medical History: No Reported History Additional Past Medical History / Comment(s): preeclampsia, kidney stones History of Any Multi-Drug Resistant Organisms: None Reported Additional Past Surgical History / Comment(s): breast reduction Past Anesthesia/Blood Transfusion Reactions: No Reported Reaction Smoking Status: Never smoker - Past Family History Father Family Medical History: Diabetes Mellitus, Hypertension Medications and Allergies Home Medications Medication Instructions Recorded Confirmed Type Pnv No.95/Ferrous Fum/Folic AC 1 tab PO DAILY 05/19/18 10/14/20 History [ Multivitamin Tablet] Vitamin B Complex 1 cap PO DAILY 05/19/18 10/14/20 History Aspirin [Children's Aspirin] 81 mg PO DAILY 03/26/19 10/14/20 History valACYclovir [Valtrex] 500 mg PO DAILY PRN 05/25/20 10/14/20 History Allergies Allergy/AdvReac Type Severity Reaction Status Date / Time No Known Allergies Allergy Verified 10/14/20 10:23 Exam Osteopathic Statement: *. No significant issues noted on an osteopathic structural exam other than those noted in the History and Physical/Consult. Intake and Output 10/13/20 10/14/20 10/14/20 22:59 06:59 14:59 Other: Weight 70.307 kg Targeted physical exam is performed and state in general this a well-nourished well-developed female in no acute distress, breathing is noted to be nonlabored, heart has regular rhythm, abdomen is gravid heart tones are noted to be category 1 and she is sherry regularly. Patient was checked in the office and noted be 2/50/high, footling breech was appreciated. Ultrasound confirmation of presentation was performed. Results Result Diagrams: 10/14/20 10:35 10/14/20 10:35 Abnormal Lab Results - Last 24 Hours (Table) 10/14/20 10/14/20 Range/Units 10:15 10:35 WBC 11.9 H (3.8-10.6) k/uL Neutrophils # 9.1 H (1.3-7.7) k/uL Urine Appearance Cloudy H (Clear) Ur Leukocyte Esterase Large H (Negative) Urine WBC 6 H (0-5) /hpf Ur Squamous Epith Cells 5 H (0-4) /hpf Urine Bacteria Rare H (None) /hpf Assessment and Plan (1) 35 weeks gestation of Current Visit: Yes Status: Acute Code(s): Z3A.35 - 35 WEEKS GESTATION OF SNOMED Code(s): 26226438 (2) Footling breech presentation Current Visit: Yes Status: Acute Code(s): O32.8XX0 - MATERNAL CARE FOR OTH MALPRESENTATION OF FETUS, UNSP SNOMED Code(s): 678732711 (3) Preeclampsia Current Visit: No Status: Acute Code(s): O14.90 - UNSPECIFIED PRE-ECLAMPSIA, UNSPECIFIED TRIMESTER SNOMED Code(s): 332578302 Plan: This is a 30-year-old at 35-3/7 weeks with severe preeclampsia. Labs and findings are reviewed with patient in detail. Multiple questions are answered. Given 's presentation a footling breech recommend primary C- section. Patient although discouraged understands. We will monitor blood pressures closely. Patient did receive 1 dose of Celestone.
[2020-10-14] MEDS ORDERED: IBUPROFEN IV 800 MG in SODIUM CHLORIDE 0.9% 250 ML IV ONE (18:36)
--- NOTE | 2020-10-14 18:36 | P.OP ---
Date of Procedure: 10/14/20 Preoperative Diagnosis: IUP at 35-3/7 weeks, severe preeclampsia, labor, footling breech presentation Postoperative Diagnosis: Same Procedure(s) Performed: Primary low transverse section Anesthesia: spinal Surgeon: Gabby Bo Engineering Equipment Operator #1: Mani Bullard Estimated Blood Loss (ml): 350 IV fluids (ml): 1,000 Urine output (ml): 200 Pathology: other (Placenta) Condition: stable Disposition: observation Indications for Procedure: This 30-year-old presents to OB after routine visit. Patient states her blood pressures were noted to be elevated at home 160s over 90s after she had a headache she took her blood pressure. Patient states she took Tylenol headache was relieved. Patient does have a history of severe preeclampsia and delivery at 34-5/7 weeks. Patient is known footling breech presentation. Blood pressures on triage noted to be 150s 160s over high 90s. Occasionally high 170s over 90s. Preeclampsia labs are noted to be negative, urine protein creatinine ratio noted to be 0.5. In addition patient was noted to be 2 cm in the office, 4 cm all on OB. Decision was made for primary secondary to labor, footling breech presentation, severe preeclampsia. Operative Findings: Normal uterus tubes and ovaries were appreciated, viable female delivered at 1752, weight of 5 lbs. 14 oz. Description of Procedure: Patient was taken back to the operating suite where spinal anesthesia was found be adequate by the anesthesia department. She was then prepped and draped in the normal sterile fashion in the dorsal supine position. A Pfannenstiel skin incision was made the Scalpel and carried through the underlying layer of fascia. The fascia was then incised in the midline and extended laterally. Superior aspect of the fascial incision was then grasped with [place] clamps, elevated and the underlying rectus muscles dissected off sharply, the inferior aspect of the fascial incision was then grasped alexis clamps, elevated and underlying rectus muscles dissected off sharply. Rectus muscles were in the midline the peritoneum was identified and entered. Bladder blade was then inserted. A bladder flap was then created using sharp and blunt dissection. Hysterotomy incision was made the sacrum was encountered in the infant was delivered in a breech presentation. The umbilical cord was doubly clamped and cut. The infant was handed off to the awaiting RN. The placenta was then removed manually and the uterus was cleared of all clots and debris. The uterus was then closed with 0 Vicryl in a running fashion from one lateral edge the other lateral edge. A second layer of suture was used as an imbricating layer. A small amount of bleeding was noted in the midportion of the uterus therefore a djszry-ed-axchi suture was used to obtain hemostasis. The pelvis then copiously irrigated and the uterus was returned to the abdomen. Hysterotomy incision was noted to be hemostatic, the gutters were cleared of all clots and debris. A small bleeding was noted on the bladder flap therefore Surgicel was placed along this area hemostasis was appreciated. The peritoneum was then loosely reapproximated and the fascia was closed 0 Vicryl in a running fashion from one lateral edge the other. The subcutaneous tissues. Found to be hemostatic and closed with 3-0 Vicryl in a running fashion. The skin was then closed with 4-0 Vicryl in a subcuticular fashion. Steri-Strips and sterile dressings were applied as needed. All counts were noted be correct 2 patient and infant tolerated procedure well and are resting comfortably.
[2020-10-14] MEDS ORDERED: CALCIUM GLUCONATE 1 GM/10 ML VIAL IV PRN (18:45)
[2020-10-14] MEDS ORDERED: MAGNESIUM SULFATE-WATER PMX 20 GM in WATER FOR INJECTION 1 500ML.BAG IV SCH (18:45)
[2020-10-14] MEDS ORDERED: MAGNESIUM SULFATE-WATER PMX 4 GM in WATER FOR INJECTION 1 100ML.BAG IVPB ONE (18:45)
[2020-10-14] MEDS: diphenhydrAMINE 50 MG/ML 1 ML VIAL IVP PRN (19:57)
[2020-10-14] MEDS: LABETALOL 100 MG TAB PO SCH (20:00)
[2020-10-14] MEDS ORDERED: NALBUPHINE 10 MG/ML (1 ML AMP) IM ONE (20:25)
[2020-10-14] MEDS ORDERED: NALBUPHINE 10 MG/0.5 ML (10 mL MDV) IM ONE (20:45)
[2020-10-14] MEDS: SENNOSIDES-DOCUSATE SODIUM 1 EACH TAB PO SCH (20:46)
[2020-10-15] MEDS: LACTATED RINGERS 1,000 ML IV SCH ×3 (00:19→10:51)
[2020-10-15] MEDS: diphenhydrAMINE 50 MG/ML 1 ML VIAL IVP PRN ×2 (04:35→10:44)
[2020-10-15] MEDS: MAGNESIUM SULFATE-WATER PMX 20 GM in WATER FOR INJECTION 1 500ML.BAG IV SCH ×3 (05:14→19:28)
--- NOTE | 2020-10-15 07:41 | P.PNOBGPC ---
Subjective - Subjective Principal diagnosis: PPD 1 LTCS footling breech, and severe preeclampsia Interval history: Patient did over well well last night. Magnesium continues to run. Brisk reflexes remained. She states her headache is improving and overall she is feeling better. Lochia is minimal. Blood pressures have been well controlled overnight. She is pumping currently. is in the nursery and improving. Patient reports: Reports appetite normal (Barker remains), Reports pain well controlled : doing well (In special care nursery) Objective - Vital Signs Latest vital signs: Vital Signs Temp Pulse Resp BP Pulse Ox 10/15/20 06:00 97.3 F L 97 16 106/63 98 10/15/20 04:00 97.8 F 114 H 16 120/74 10/15/20 02:00 96.3 F L 88 16 130/65 10/15/20 00:00 95.9 F L 98 16 130/68 10/14/20 23:00 95.9 F L 105 H 16 103/62 10/14/20 22:00 100 16 131/74 97 10/14/20 21:00 114 H 16 145/80 10/14/20 20:28 97.2 F L 122 H 17 140/79 97 10/14/20 19:58 117 H 17 154/80 10/14/20 19:26 97.9 F 117 H 16 156/70 96 10/14/20 19:12 113 H 18 170/70 10/14/20 18:58 101 H 17 152/69 96 10/14/20 18:53 117 H 17 184/116 96 10/14/20 18:28 97.9 F 115 H 18 137/79 97 10/14/20 13:26 96.6 F L 116 H 16 160/99 10/14/20 10:21 96.6 F L 116 H 16 160/99 Intake and Output 10/14/20 10/15/20 10/15/20 22:59 06:59 14:59 Intake Total 1575 596.667 Output Total 1075 1375 Balance 500 -778.333 Intake: Intake, IV Titration 1575 596.667 Amount Lactated Ringers 1,000 ml 1275 200 @ 125 mls/hr IV .Q8H [facility] Rx#:[id number] Magnesium Sulfate-Water 100 396.667 Pmx 20 gm In Water For Injection 1 500ml.bag @ 1 GM/HR 25 mls/hr IV .Q20H [facility] Rx#:[id number] Magnesium Sulfate-Water 100 Pmx 4 gm In Water For Injection 1 100ml.bag @ 300 mls/hr IVPB ONCE ONE Rx#:[id number] ceFAZolin 2 gm In Sodium 100 Chloride 0.9% 50 ml @ 100 mls/hr IVPB ONCE ONE Rx# :[id number] Output: Urine 1075 1375 Other: Voiding Method Indwelling Catheter Indwelling Catheter - Exam Extremities: Present: normal, edema Abdomen: Present: normal appearance Incision: Present: normal, intact Uterus: Present: normal, firm - Labs Labs: Abnormal Lab Results - Last 24 Hours (Table) 10/14/20 10/14/20 Range/Units 10:15 10:35 WBC 11.9 H (3.8-10.6) k/uL Neutrophils # 9.1 H (1.3-7.7) k/uL Urine Appearance Cloudy H (Clear) Ur Leukocyte Esterase Large H (Negative) Urine WBC 6 H (0-5) /hpf Ur Squamous Epith Cells 5 H (0-4) /hpf Urine Bacteria Rare H (None) /hpf Assessment and Plan (1) 35 weeks gestation of Current Visit: Yes Status: Acute Code(s): Z3A.35 - 35 WEEKS GESTATION OF SNOMED Code(s): 39663106 (2) Footling breech presentation Current Visit: Yes Status: Acute Code(s): O32.8XX0 - MATERNAL CARE FOR OTH MALPRESENTATION OF FETUS, UNSP SNOMED Code(s): 437698452 (3) Preeclampsia Current Visit: No Status: Acute Code(s): O14.90 - UNSPECIFIED PRE-ECLAMPSIA, UNSPECIFIED TRIMESTER SNOMED Code(s): 502189384 (4) S/P section Current Visit: Yes Status: Acute Code(s): Z98.891 - HISTORY OF UTERINE SCAR FROM PREVIOUS SURGERY SNOMED Code(s): 826076333 Plan: This 30-year-old status post primary for breech, severe preeclampsia and labor at 35-3/7 weeks is doing well this morning. She is overall doing well this morning, improvement in blood pressures noted with oral labetalol. We'll continue magnesium for 24 hours postdelivery and reevaluate at that time given her reflexes. Patient is complaining of significant urticaria therefore hydroxyzine is begun. We'll continue Barker management until magnesium is discontinued. The waiting preeclampsia labs this morning.
[2020-10-15] MEDS: PRENATAL VIT-IRON-FOLIC ACID 1 EACH CAP PO SCH (08:04)
[2020-10-15] MEDS: IBUPROFEN 600 MG TAB PO PRN ×3 (08:04→19:38)
[2020-10-15] MEDS: LABETALOL 100 MG TAB PO SCH (08:04)
[2020-10-15] MEDS: SENNOSIDES-DOCUSATE SODIUM 1 EACH TAB PO SCH ×2 (08:04→19:38)
[2020-10-15] MEDS: hydrOXYzine HCL 10 MG TAB PO SCH (08:24)
[2020-10-15] MEDS: BETAMET ACET-BETAMETH SOD PHOS 6 MG/ML MDV IM SCH (12:41)
[2020-10-15] MEDS: ACETAMINOPHEN TAB 325 MG TAB PO PRN ×2 (12:50→18:21)
[2020-10-15 16:18] LABS: Basophils % (A) 0 %; Eosinophils # (A) 0.1 k/uL (0-0.7); Eosinophils % (A) 0 %; HCT 33.2 % (34.0-46.0); HGB 11.2 gm/dL (11.4-16.0); Lymphocytes # (A) 2.1 k/uL (1.0-4.8); Lymphocytes % (A) 14 %; MCH 29.6 pg (25.0-35.0); MCHC 33.7 g/dL (31.0-37.0); MCV 87.9 fL (80.0-100.0); Mean Platelet Volume 8.4; Monocytes # (A) 0.9 k/uL (0-1.0); Monocytes % (A) 6 %; Neutrophils # (A) 11.5 k/uL (1.3-7.7); Neutrophils % (A) 78 %; Platelet Count 255 k/uL (150-450); RBC 3.78 m/uL (3.80-5.40); RDW 14.9 % (11.5-15.5); WBC 14.7 k/uL (3.8-10.6)
[2020-10-15 16:26] LABS: Uric Acid 4.8 mg/dL (3.7-7.4)
[2020-10-16] MEDS: diphenhydrAMINE 50 MG/ML 1 ML VIAL IVP PRN (00:01)
[2020-10-16] MEDS: MAGNESIUM SULFATE-WATER PMX 20 GM in WATER FOR INJECTION 1 500ML.BAG IV SCH (05:52)
[2020-10-16] MEDS: SENNOSIDES-DOCUSATE SODIUM 1 EACH TAB PO SCH (07:41)
[2020-10-16] MEDS: IBUPROFEN 600 MG TAB PO PRN ×3 (07:42→21:44)
[2020-10-16] MEDS: PRENATAL VIT-IRON-FOLIC ACID 1 EACH CAP PO SCH (07:42)
[2020-10-16] MEDS: LABETALOL 100 MG TAB PO SCH ×3 (07:42→21:44)
[2020-10-16] MEDS: hydrOXYzine HCL 10 MG TAB PO SCH ×2 (07:58→12:11)
--- NOTE | 2020-10-16 10:28 | P.PNOBGPC ---
Subjective - Subjective Principal diagnosis: Preeclampsia Interval history: Magnesium sulfate is discontinued this morning. She had been complaining of significant fatigue and nausea and weakness through the night especially when up to the nursery. She denies headaches, visual changes, abdominal pain. Pain is well-controlled with oral ibuprofen. Lochia is minimal. She started feeling better in the last 1 hour after magnesium was discontinued. Blood pressures have been on 110s/70s through the night. Patient reports: Reports appetite normal, Reports voiding normally (Catheter discontinued), Reports pain well controlled, Reports ambulating normally : doing well (In special care nursery for gestational age) Objective - Vital Signs Latest vital signs: Vital Signs Temp Pulse Resp BP Pulse Ox 10/16/20 09:41 94 138/75 10/16/20 07:50 96.2 F L 90 16 129/72 97 10/16/20 06:00 80 16 119/65 10/16/20 05:00 89 16 116/64 10/16/20 04:00 98.1 F 79 16 118/64 99 10/16/20 03:00 75 16 112/68 10/16/20 02:00 83 17 112/67 98 10/16/20 01:00 78 16 121/63 10/16/20 00:00 73 16 119/65 10/15/20 22:00 95.5 F L 79 16 128/60 10/15/20 20:00 87 16 130/73 10/15/20 19:00 80 16 113/61 10/15/20 18:00 86 16 154/68 98 10/15/20 16:00 97.0 F L 85 16 112/62 97 10/15/20 14:00 86 16 126/65 99 10/15/20 12:00 95.7 F L 88 16 99/54 98 Intake and Output 10/15/20 10/16/20 10/16/20 22:59 06:59 14:59 Intake Total 1500 1500 200 Output Total 1200 845 750 Balance 300 655 -550 Intake: IV 500 1000 Lactated Ringers 1,000 ml 300 600 @ 125 mls/hr IV .Q8H [facility] Rx#:[id number] Magnesium Sulfate-Water 200 400 Pmx 20 gm In Water For Injection 1 500ml.bag @ 1 GM/HR 25 mls/hr IV .Q20H [facility] Rx#:[id number] Intake, IV Titration 1000 500 200 Amount Lactated Ringers 1,000 ml 300 200 @ 125 mls/hr IV .Q8H [facility] Rx#:[id number] Magnesium Sulfate-Water 700 500 Pmx 20 gm In Water For Injection 1 500ml.bag @ 2 GM/HR 50 mls/hr IV .Q10H [facility] Rx#:[id number] Output: Urine 1200 845 750 Other: Voiding Method Incontinent Indwelling Catheter Indwelling Catheter - Exam Extremities: Present: normal. Absent: edema Abdomen: Present: normal appearance, soft. Absent: tenderness Incision: Present: normal, dry, intact. Absent: erythematous Uterus: Present: normal, firm. Absent: tenderness - Labs Labs: Abnormal Lab Results - Last 24 Hours (Table) 10/15/20 Range/Units 16:08 WBC 14.7 H (3.8-10.6) k/uL RBC 3.78 L (3.80-5.40) m/uL Hgb 11.2 L (11.4-16.0) gm/dL Hct 33.2 L (34.0-46.0) % Neutrophils # 11.5 H (1.3-7.7) k/uL Assessment and Plan (1) 35 weeks gestation of Current Visit: Yes Status: Acute Code(s): Z3A.35 - 35 WEEKS GESTATION OF SNOMED Code(s): 00258052 (2) Footling breech presentation Current Visit: Yes Status: Acute Code(s): O32.8XX0 - MATERNAL CARE FOR OTH MALPRESENTATION OF FETUS, UNSP SNOMED Code(s): 743030111 (3) S/P section Current Visit: Yes Status: Acute Code(s): Z98.891 - HISTORY OF UTERINE SCAR FROM PREVIOUS SURGERY SNOMED Code(s): 329872496 Plan: Postop day 1 status post primary low transverse section secondary to fo otling breech and symptomatic preeclampsia. Magnesium sulfate discontinued this morning. Blood pressures were stable throughout the night. She is asymptomatic at this time. She is on labetalol 100 mg twice a day. Will monitor blood pressures and symptomatology closely. Otherwise routine care.
[2020-10-16] MEDS: ACETAMINOPHEN TAB 325 MG TAB PO PRN ×2 (12:09→16:58)
[2020-10-16] MEDS: LACTATED RINGERS 1,000 ML IV SCH ×2 (12:10→12:11)
[2020-10-17] MEDS: SENNOSIDES-DOCUSATE SODIUM 1 EACH TAB PO SCH ×3 (00:07→21:09)
[2020-10-17] MEDS: hydrOXYzine HCL 10 MG TAB PO SCH ×3 (00:07→21:20)
[2020-10-17] MEDS: IBUPROFEN 600 MG TAB PO PRN ×3 (05:15→20:35)
[2020-10-17] MEDS: HYDROcodone/APAP 5-325MG 1 EACH TAB PO PRN ×2 (08:22→15:26)
[2020-10-17] MEDS: LABETALOL 100 MG TAB PO SCH ×2 (09:38→21:09)
[2020-10-17] MEDS: PRENATAL VIT-IRON-FOLIC ACID 1 EACH CAP PO SCH (09:38)
--- NOTE | 2020-10-17 09:54 | P.PNOBGPC ---
Subjective - Subjective Principal diagnosis: Preeclampsia Interval history: Feeling significantly better over the last 24 hours. Pumping successfully. Denies headaches, visual changes, nausea, vomiting, abdominal pain. Minimal swelling. Ambulating and voiding without difficulty. Patient reports: Reports appetite normal, Reports voiding normally, Reports pain well controlled [place]: doing well Objective - Vital Signs Latest vital signs: Vital Signs Temp Pulse Resp BP Pulse Ox 10/17/20 08:00 96.9 F L 82 16 132/75 10/17/20 03:00 71 16 125/75 10/16/20 23:00 88 16 137/79 98 10/16/20 19:00 96.6 F L 87 16 121/57 98 10/16/20 15:28 96.6 F L 83 16 140/67 100 10/16/20 12:01 92.2 F L 88 16 140/64 98 Intake and Output 10/16/20 10/17/20 10/17/20 22:59 06:59 14:59 Intake Total 600 Balance 600 Intake: Oral 600 Other: # Voids 1 1 - Exam Extremities: Present: normal. Absent: tenderness, edema Abdomen: Present: normal appearance, soft. Absent: distention, tenderness Incision: Present: normal, dry, intact. Absent: erythematous Uterus: Present: normal, firm Assessment and Plan (1) 35 weeks gestation of Current Visit: Yes Status: Acute Code(s): Z3A.35 - 35 WEEKS GESTATION OF SNOMED Code(s): 76541724 (2) Footling breech presentation Current Visit: Yes Status: Acute Code(s): O32.8XX0 - MATERNAL CARE FOR OTH MALPRESENTATION OF FETUS, UNSP SNOMED Code(s): 018236425 (3) S/P section Current Visit: Yes Status: Acute Code(s): Z98.891 - HISTORY OF UTERINE SCAR FROM PREVIOUS SURGERY SNOMED Code(s): 778691112 (4) Preeclampsia Current Visit: No Status: Acute Code(s): O14.90 - UNSPECIFIED PRE-ECLAMPSIA, UNSPECIFIED TRIMESTER SNOMED Code(s): 319242741 Plan: Postoperative day 3 status post primary low transverse section for preeclampsia and footling breech presentation. Recovering well. Blood pressure stable on labetalol 100 mg by mouth twice a day. Probable discharge home tomorrow.
[2020-10-18] MEDS: HYDROcodone/APAP 5-325MG 1 EACH TAB PO PRN ×2 (00:12→07:44)
[2020-10-18] MEDS: IBUPROFEN 600 MG TAB PO PRN (04:40)
[2020-10-18] MEDS: SENNOSIDES-DOCUSATE SODIUM 1 EACH TAB PO SCH (07:44)
--- NOTE | 2020-10-18 08:28 | P.DS ---
Providers Date of admission: 10/14/20 12:51 Expected date of discharge: 10/18/20 Attending physician: Gabby Bo Primary care physician: Stated None - Discharge Diagnosis(es) (1) 35 weeks gestation of Current Visit: Yes Status: Acute (2) Footling breech presentation Current Visit: Yes Status: Acute (3) Preeclampsia Current Visit: No Status: Acute (4) S/P section Current Visit: Yes Status: Acute Hospital Course: This is a 30-year-old at 35-3/7 weeks that presented to the hospital on Saturday 10/14 for blood pressure monitoring. Patient had noted headache overnight and has a history of severe preeclampsia. Blood pressure was noted to be elevated on triage, and diagnosis of severe preeclampsia was made. In addition patient was complaining of contractions and didn't make cervical change from 2 cm to 4 seconds. Infant was noted to be in footling breech presentation therefore primary was performed. For details on the please see the operative report. Patient's postoperative course was complicated by magnesium infusion, preeclampsia labs were noted to be negative throughout her hospital stay. Patient is currently feeling well and blood pressures are controlled on labetalol 100 mg twice daily. Patient denies headache or abdominal pain. Patient states her pain is well-controlled. She is pumping as her remains in special care nursery on 2 L of oxygen. She states her lochia is minimal. She states she is tolerating a regular diet without nausea or vomiting. She is due to be discharged home today. Patient Condition at Discharge: Good Plan - Discharge Summary New Discharge Prescriptions: No Action Vitamin B Complex 1 cap PO DAILY Pnv No.95/Ferrous Fum/Folic AC [ Multivitamin Tablet] 1 tab PO DAILY Aspirin [Children's Aspirin] 81 mg PO DAILY valACYclovir [Valtrex] 500 mg PO DAILY PRN PRN Reason: Cold Sores Discharge Medication List Pnv No.95/Ferrous Fum/Folic AC [ Multivitamin Tablet] 1 tab PO DAILY 05/19/18 [History] Vitamin B Complex 1 cap PO DAILY 05/19/18 [History] Aspirin [Children's Aspirin] 81 mg PO DAILY 03/26/19 [History] valACYclovir [Valtrex] 500 mg PO DAILY PRN 05/25/20 [History] Follow up Appointment(s)/Referral(s): Gabby Bo DO [Doctor of Osteopathic Medicine] - 1 Week Patient Instructions/Handouts: (DC), (GEN) Activity/Diet/Wound Care/Special Instructions: Patient is to call the office with any concerns prior to her postop appointment on Sunday. We will monitor blood pressures closely. Should she have any conc erns with fever or foul-smelling lochia increased bleeding headache or signs of preeclampsia she is to call and be seen sooner. Discharge Disposition: HOME SELF-CARE
[2020-10-18 08:29] VITALS: BP 152/88; PULSE 74; RESP 15; TEMP 98
[2020-10-18] MEDS: LABETALOL 100 MG TAB PO SCH (09:56)
== END 2020-10-18 10:30 | disposition home or self-care (01) | DRG 786 ==
LOC: FBPOP 10:07 → 4FBP 12:51
PROVIDERS: ADMIT Obstetrics & Gynecology Obstetrics; ATTEND Obstetrics & Gynecology Obstetrics
PROC: 10D00Z1 Extraction of Products of Conception, Low, Open Approach (ICD-10-PCS; principal; 2020-10-14 17:00)
DX: O32.8XX0 Maternal care for other malpresentation of fetus, not applicable or unspecified (principal); O60.14X0 Preterm labor third trimester with preterm delivery third trimester, not applicable or unspecified; O14.14 Severe pre-eclampsia complicating childbirth; Z86.19 Personal history of other infectious and parasitic diseases; Z92.89 Personal history of other medical treatment; Z37.0 Single live birth; Z3A.35 35 weeks gestation of pregnancy; Z79.82 Long term (current) use of aspirin; Z82.49 Family history of ischemic heart disease and other diseases of the circulatory system; Z83.3 Family history of diabetes mellitus; Z87.442 Personal history of urinary calculi; Z90.49 Acquired absence of other specified parts of digestive tract; Z86.16 Personal history of COVID-19
CPT/HCPCS: 59025; 81001; 82565; 82570; 83615; 84156; 84450; 84460; 84520; 84550; 85025; 85610; 86850; 86900; 86901; 88307

== ENCOUNTER → 2020-11-01 | Outpatient (CLI) | payer BC ==
[2020-11-01 14:37] LABS: Basophils # (A) 0.05 X 10*3/uL (0.00-0.10); Basophils % (A) 0.8 %; Eosinophils # (A) 0.21 X 10*3/uL (0.04-0.35); Eosinophils % (A) 3.2 %; HCT 38.1 % (37.2-46.3); HGB 12.4 g/dL (12.0-15.0); Lymphocytes # (A) 2.55 X 10*3/uL (0.90-5.00); Lymphocytes % (A) 38.9 %; MCH 28.7 pg (27.0-32.0); MCHC 32.5 g/dL (32.0-37.0); MCV 88.2 fL (80.0-97.0); Mean Platelet Volume 10.3 fL (9.5-12.2); Monocytes # (A) 0.62 X 10*3/uL (0.20-1.00); Monocytes % (A) 9.5 %; Neutrophils % (A) 47.3 %; Platelet Count 441 X 10*3/uL (140-440); RBC 4.32 X 10*6/uL (4.10-5.20); WBC 6.55 X 10*3/uL (4.50-10.00)
[2020-11-01 16:44] LABS: Uric Acid 6.6 mg/dL (2.9-7.7)
== END | disposition home or self-care (01) ==
LOC: LABWHC1 08:31
PROVIDERS: ATTEND Obstetrics & Gynecology Obstetrics
DX: I10 Essential (primary) hypertension (principal); R51.9 Headache, unspecified; R42 Dizziness and giddiness; R55 Syncope and collapse; N93.9 Abnormal uterine and vaginal bleeding, unspecified
CPT/HCPCS: 36415; 84443; 84450; 84460; 84482; 84550; 85025

== ENCOUNTER → 2020-11-03 | Outpatient (CLI) | payer BC ==
--- NOTE | 2020-11-03 20:00 | ECHOF ---
Referral Reason:[id number] R55 MEASUREMENTS -------- HEIGHT: 165.1 cm WEIGHT: 65.8 kg BP: RVIDd: 2.7 cm (< 3.3) IVSd: 0.9 cm (0.6 - 1.1) LVIDd: 4.8 cm (3.9 - 5.3) LVPWd: 0.8 cm (0.6 - 1.1) IVSs: 1.1 cm LVIDs: 3.4 cm LVPWs: 1.2 cm LA Diam: 2.8 cm (2.7 - 3.8) LAESV Index (A-L): 19.15 ml/m Ao Diam: 2.5 cm (2.0 - 3.7) AV Cusp: 1.9 cm (1.5 - 2.6) LA Diam: 3.1 cm (2.7 - 3.8) MV EXCURSION: 17.918 mm (> 18.000) MV EF SLOPE: 124 mm/s (70 - 150) EPSS: 0.8 cm MV E Gilmer: 0.64 m/s MV DecT: 175 ms MV A [place]: 0.66 m/s MV E/A Ratio: 0.96 RAP: 5.00 mmHg RVSP: 12.99 mmHg FINDINGS -------- Sinus rhythm. This was a technically adequate study. LV size, wall thickness and systolic function are normal, with an EF greater than 55%. The left oskar tricular size is normal. The right ventricle is normal in size. Normal LA size by volume 22+/-6 ml/m2. The right atrial size is normal. The aortic valve is trileaflet, and appears structurally normal. No aortic stenosis or regurgitation. The mitral valve is normal. Mild mitral regurgitation is present. The tricuspid valve appears structurally normal. Mild tricuspid regurgitation present. Right vent ricular systolic pressure is normal at < 35 mmHg. There is no pulmonic regurgitation present. The aortic root size is normal. There is no pericardial effusion. CONCLUSIONS -------- 1. LV size, wall thickness and systolic function are normal, with an EF greater than 55%. 2. Normal LA size by volume 22+/-6 ml/m2. 3. The aortic valve is trileaflet, and appears structurally normal. No aortic stenosis or regurgitati on. 4. Mild mitral regurgitation is present. 5. Mild tricuspid regurgitation present. 6. There is no pericardial effusion. STREET LIGHT REPAIRER: Nhi Bailey RDCS
== END ==
LOC: RADECHMAIN 11:58
PROVIDERS: ATTEND Obstetrics & Gynecology Obstetrics
DX: I08.1 Rheumatic disorders of both mitral and tricuspid valves (principal); R55 Syncope and collapse
CPT/HCPCS: 93225; 93226; 93306

== ENCOUNTER → 2021-01-17 | Outpatient (CLI) | payer BC ==
--- NOTE | 2021-01-18 06:17 | CT ---
EXAMINATION TYPE: CT abdomen wo/w con DATE OF EXAM: 01/17/2021 HISTORY: Abnormal US for liver lesion. CT DLP: 847.8mGycm Automated Exposure Control for Dose Reduction was Utilized. CONTRAST: CT scan of the abdomen is performed without oral and without and with IV Contrast, patient injected w ith 100ml mL of Isovue 300. COMPARISON: Ultrasound abdomen Limited May 25, 2020 FINDINGS: LUNG BASES: No significant abnormality is appreciated. LIVER/GB: Mild hepatomegaly with prominent right hepatic lobe. Liver is isodense to slightly hypodens e relative to spleen consistent with mild diffuse fatty infiltration. No worrisome focal intrahepatic mass or ductal dilatation is seen on images to correspond to abnormality anterior left hepatic lobe. No biliary dilatation noted. PANCREAS: No significant abnormality is seen. SPLEEN: No significant abnormality is seen. ADRENALS: No significant abnormality is seen. KIDNEYS: No significant abnormality is seen. BOWEL: No significant abnormality is seen. LYMPH NODES: No greater than 1cm abdominal lymph nodes are appreciated. OSSEOUS STRUCTURES: No significant abnormality is seen. OTHER: No significant additional abnormality is seen. IMPRESSION: No worrisome intrahepatic mass.
== END | disposition home or self-care (01) ==
LOC: RADCTMAIN 18:05
PROVIDERS: ATTEND Surgery
DX: R16.0 Hepatomegaly, not elsewhere classified (principal)
CPT/HCPCS: 74170; Q9967

== ENCOUNTER → 2021-09-16 | Outpatient (CLI) | payer BC ==
--- NOTE | 2021-09-16 13:01 | US ---
EXAMINATION TYPE: US gallbladder DATE OF EXAM: 09/16/2021 COMPARISON: CT abdomen January 17, 2021 CLINICAL HISTORY: [id number] CHOLEITHIASIS. Known gallstones, RUQ tenderness/pressure when bending over EXAM MEASUREMENTS: Liver Length: 16.5 cm Gallbladder Wall: 0.1 cm CBD: 0.4 cm Right Kidney: 10.6 x 5.1 x 5.0 cm Pancreas: obscured by overlying midline bowel gas Liver: mildly attenuating and heterogeneous Gallbladder: 2 small non mobile echogenic shadowing foci with largest measuring 0.7cm Evidence for sonographic Bernabe's sign: no CBD: visualized portions wnl, limited by overlying bowel gas Right Kidney: wnl Pancreas is obscured by overlying bowel gas on images made. Visualized liver remains heterogeneously hyperechoic. No worrisome ductal dilatation. Evaluation for focal masses suboptimal due to the hetero geneity. No obvious mass seen on images saved. Gallbladder shows 2 small round shadowing labeled nonm obile structures by technologist suspicious for stones and/or gallbladder polyps. Stones would be fav ored. No pericholecystic fluid or abnormal gallbladder wall thickening. Sonographic Bernabe sign negat isha. IMPRESSION: There are 2 intraluminal gallstones redemonstrated. No secondary ultrasound evidence for acute cholecystitis. Heterogeneous hyperechoic appearance of liver consistent with diffuse fatty infi ltration is redemonstrated. Stable mild hepatomegaly redemonstrated.
== END | disposition home or self-care (01) ==
LOC: RADUSWWP 10:36
PROVIDERS: ATTEND Surgery
DX: K80.20 Calculus of gallbladder without cholecystitis without obstruction (principal)
CPT/HCPCS: 76705

== ENCOUNTER 2023-03-19 10:23 | Outpatient (CLI) | payer BC ==
[2023-03-19] MEDS ORDERED: LACTATED RINGERS 1,000 ML IV SCH ×3 (10:45→12:00)
[2023-03-19 11:45] LABS: ALT 26 U/L (4-34); AST 22 U/L (14-36); African American GFR (CKD) >90 (>60 ml/min/1.73 sqM); Albumin 3.9 g/dL (3.5-5.0); Alkaline Phosphatase 65 U/L (38-126); Anion Gap 11 mmol/L; Blood Urea Nitrogen 10 mg/dL (7-17); Calcium 9.2 mg/dL (8.4-10.2); Carbon Dioxide 21 mmol/L (22-30); Chloride 106 mmol/L (98-107); Glucose 103 mg/dL (74-99); Non-African American GFR(CKD) >90 (>60 ml/min/1.73 sqM); Sodium 138 mmol/L (137-145); Total Bilirubin 0.7 mg/dL (0.2-1.3); Total Protein 7.4 g/dL (6.3-8.2)
[2023-03-19 11:52] LABS: Basophils % (A) 0 %; Eosinophils # (A) 0.1 k/uL (0-0.7); Eosinophils % (A) 1 %; HCT 39.4 % (34.0-46.0); HGB 14.3 gm/dL (11.4-16.0); Lymphocytes # (A) 2.2 k/uL (1.0-4.8); Lymphocytes % (A) 20 %; MCH 30.9 pg (25.0-35.0); MCHC 36.4 g/dL (31.0-37.0); MCV 84.9 fL (80.0-100.0); Mean Platelet Volume 8.4; Monocytes # (A) 0.5 k/uL (0-1.0); Monocytes % (A) 4 %; Neutrophils # (A) 8.3 k/uL (1.3-7.7); Neutrophils % (A) 74 %; Platelet Count 267 k/uL (150-450); RBC 4.63 m/uL (3.80-5.40); RDW 13.4 % (11.5-15.5); WBC 11.2 k/uL (3.8-10.6)
[2023-03-19 11:53] LABS: Appearance,Urine Cloudy (Clear); Bacteria,Urine Occasional /hpf; Bilirubin,Urine Negative (Negative); Blood,Urine Moderate (Negative); Color,Urine Light Red; Glucose,Urine (UA) Negative (Negative); Hyaline Casts,Urine 3 /lpf (0-2); Ketones,Urine Negative (Negative); Leukocyte Esterase,Urine Large (Negative); Mucus,Urine Occasional /hpf; Nitrite,Urine Negative (Negative); Protein,Urine Trace (Negative); RBC,Urine 4 /hpf (0-5); Specific Gravity,Urine 1.019 (1.001-1.035); Squamous Epithelial Cell,Urine 7 /hpf (0-4); Urobilinogen,Urine <2.0 mg/dL (<2.0); WBC,Urine 12 /hpf (0-5)
--- NOTE | 2023-03-19 12:22 | US ---
EXAMINATION TYPE: US OB limited DATE OF EXAM: 03/19/2023 COMPARISON: NONE CLINICAL INDICATION: Female, 32 years old with history of limited heart rate only; heart tones EXAM PERFORMED: Transabdominal (TA) GESTATIONAL AGE / DATING Physician Established: (10 weeks/4 days) EDC: 10/11/23 No growth performed on today?s study per ordering physician SURVEY HEART RATE: 167 bpm RHYTHM: Normal IMPRESSION: Limited examination with heart rate of 167 bpm.
[2023-03-19] MEDS ORDERED: ONDANSETRON 4 MG/2 ML VIAL IVP STA (13:01)
[2023-03-19] MEDS ORDERED: SODIUM CHLORIDE 0.9% 1,000 ML IV ONE (13:04)
[2023-03-20 01:03] VITALS: BP 160/88; PULSE 100; RESP 16; TEMP 98.1
== END 2023-03-19 16:10 ==
LOC: FBPOP 10:23
PROVIDERS: ATTEND Obstetrics & Gynecology Obstetrics
DX: O21.9 Vomiting of pregnancy, unspecified (principal); Z3A.10 10 weeks gestation of pregnancy
CPT/HCPCS: 99215; 96361; 96374; 80053; 85025; 81001; 76815; J2405; 99213

== ENCOUNTER 2023-05-16 08:42 | Outpatient (CLI) | payer BC ==
[2023-05-16] MEDS ORDERED: ACETAMINOPHEN IV (For NPO) 1,000 MG in EMPTY BAG 1 BAG IVPB STA (09:13)
[2023-05-16 09:26] LABS: Amorphous Sediment,Urine Rare /hpf; Appearance,Urine Clear (Clear); Bacteria,Urine Rare /hpf; Bilirubin,Urine Negative (Negative); Blood,Urine Large (Negative); Color,Urine Light Yellow; Glucose,Urine (UA) Negative (Negative); Ketones,Urine Negative (Negative); Leukocyte Esterase,Urine Large (Negative); Nitrite,Urine Negative (Negative); PH, Urine 6.5 (5.0-8.0); Protein,Urine Negative (Negative); RBC,Urine 75 /hpf (0-5); Specific Gravity,Urine 1.008 (1.001-1.035); Squamous Epithelial Cell,Urine 2 /hpf (0-4); Urobilinogen,Urine <2.0 mg/dL (<2.0); WBC,Urine 17 /hpf (0-5)
[2023-05-16] MEDS: LACTATED RINGERS 1,000 ML IV SCH ×2 (09:42→10:14)
[2023-05-16] MEDS ORDERED: ONDANSETRON 4 MG/2 ML VIAL IVP STA (09:48)
[2023-05-16 10:03] LABS: Basophils % (A) 0 %; Eosinophils # (A) 0.1 k/uL (0-0.7); Eosinophils % (A) 1 %; HCT 34.3 % (34.0-46.0); Lymphocytes # (A) 1.3 k/uL (1.0-4.8); Lymphocytes % (A) 21 %; MCH 30.3 pg (25.0-35.0); MCHC 35.1 g/dL (31.0-37.0); MCV 86.4 fL (80.0-100.0); Mean Platelet Volume 8.3; Monocytes # (A) 0.7 k/uL (0-1.0); Monocytes % (A) 10 %; Neutrophils # (A) 4.2 k/uL (1.3-7.7); Neutrophils % (A) 66 %; Platelet Count 229 k/uL (150-450); RBC 3.97 m/uL (3.80-5.40); RDW 13.8 % (11.5-15.5); WBC 6.4 k/uL (3.8-10.6)
[2023-05-16 11:02] LABS: ALT 27 U/L (4-34); African American GFR (CKD) >90 (>60 ml/min/1.73 sqM); Albumin 3.2 g/dL (3.5-5.0); Anion Gap 6 mmol/L; Blood Urea Nitrogen 7 mg/dL (7-17); Calcium 8.7 mg/dL (8.4-10.2); Carbon Dioxide 20 mmol/L (22-30); Chloride 110 mmol/L (98-107); Glucose 94 mg/dL (74-99); Non-African American GFR(CKD) >90 (>60 ml/min/1.73 sqM); Sodium 136 mmol/L (137-145); Total Bilirubin 0.9 mg/dL (0.2-1.3)
[2023-05-16 11:04] LABS: Potassium 4.5 mmol/L (3.5-5.1)
[2023-05-16 11:05] LABS: AST 29 U/L (14-36); Alkaline Phosphatase 52 U/L (38-126)
[2023-05-16 13:18] VITALS: BP 139/82; PULSE 101; RESP 16; TEMP 97.6
--- NOTE | 2023-07-05 10:52 | P.MSEPDOC ---
Presenting Problems - Arrival Data Date of Arrival on Unit: 05/16/23 Time of Arrival on Unit: 08:42 Mode of Transport: Ambulatory - Complaint OB-Reason for Admission/Chief Complaint: Acute Nausea/Vomiting Medical History - Information : 6 Para: 2 Term: 0 : 2 Abortions: Spontaneous or Elective: 3 Number of Living Children: 2 - Gestational Age Gestational Age by NANDA (wks/days): 18 Weeks and 6 Days - History Complications: Preeclampsia Review of Systems - Review of Systems Constitutional: No problems Breast: No problems ENT: No problems Cardiovascular: No problems Respiratory: No problems Gastrointestinal: No problems Genitourinary: No problems Musculoskeletal: No problems Neurological: No problems Skin: No problems Vital Signs - Temperature Temperature: 97.6 F Temperature Source: Oral - Pulse Right Sitting Pulse Rate: 101 Pulse Assessment Method: Automatic Cuff - Respirations Respiratory Rate: 16 Oxygen Delivery Method: Room Air O2 Sat by Pulse Oximetry: 99 - Blood Pressure Right Arm Blood Pressure: 139/82 Blood Pressure Mean: 101 Blood Pressure Source: Automatic Cuff Medical Screen Scoring - Assessment - Baby A Baseline FHR: 150 Physician Notification - Physician Notified Physician Notified Date: 05/16/23 Physician Notified Time: 08:48 Physician: Gabby Bo Maternal Triage Index - Non-Urgent/Priority 4 Non-Urgent Priority 4: Yes Criteria Met for Priority 4: nausea, vomiting, chills and body aches, and flank pain x2 days, Disposition - Disposition OB Disposition: Triage Discharge Date: 05/16/23 Discharge Time: 12:00 I agree with the RN Medical Screening Exam: No Physician's MSE Comment: incomplete record, pt did receive IVF and triple swab was positive for COVID, no documentation of this Case reviewed; plan agreed upon as documented in EMR&OBIX.: No Diagnosis: DEHYDRATION
== END 2023-05-16 12:00 | disposition home or self-care (01) ==
LOC: FBPOP 08:42
PROVIDERS: ATTEND Obstetrics & Gynecology Obstetrics
DX: O21.1 Hyperemesis gravidarum with metabolic disturbance (principal); O14.92 Unspecified pre-eclampsia, second trimester; O98.512 Other viral diseases complicating pregnancy, second trimester; U07.1 COVID-19; O99.333 Smoking (tobacco) complicating pregnancy, third trimester; F17.200 Nicotine dependence, unspecified, uncomplicated; Z3A.18 18 weeks gestation of pregnancy
CPT/HCPCS: 99214; 96361; 96365; 96367; 96375; 36415; 80053; 85025; 81001; 87636; J0690; J2405; J0131

== ENCOUNTER 2023-08-30 12:06 | Outpatient (CLI) | payer BC ==
[2023-08-30 13:01] LABS: Appearance,Urine Clear (Clear); Bacteria,Urine Rare /hpf; Bilirubin,Urine Negative (Negative); Blood,Urine Negative (Negative); Budding Yeast,Urine Occasional /hpf; Color,Urine Colorless; Glucose,Urine (UA) Negative (Negative); Ketones,Urine Negative (Negative); Leukocyte Esterase,Urine Large (Negative); Mucus,Urine Rare /hpf; Nitrite,Urine Negative (Negative); Protein,Urine Negative (Negative); RBC,Urine 2 /hpf (0-5); Specific Gravity,Urine 1.009 (1.001-1.035); Squamous Epithelial Cell,Urine 2 /hpf (0-4); Urobilinogen,Urine <2.0 mg/dL (<2.0); WBC,Urine 9 /hpf (0-5)
[2023-08-30 13:05] LABS: Basophils % (A) 0 %; Eosinophils # (A) 0.3 k/uL (0-0.7); Eosinophils % (A) 2 %; HCT 38.2 % (34.0-46.0); HGB 12.7 gm/dL (11.4-16.0); Lymphocytes # (A) 2.3 k/uL (1.0-4.8); Lymphocytes % (A) 18 %; MCH 27.8 pg (25.0-35.0); MCHC 33.3 g/dL (31.0-37.0); MCV 83.7 fL (80.0-100.0); Mean Platelet Volume 8.2; Monocytes # (A) 0.8 k/uL (0-1.0); Monocytes % (A) 7 %; Neutrophils # (A) 9.1 k/uL (1.3-7.7); Neutrophils % (A) 71 %; Platelet Count 160 k/uL (150-450); Poikilocytosis Slight; RBC 4.56 m/uL (3.80-5.40); RDW 14.7 % (11.5-15.5); WBC 12.7 k/uL (3.8-10.6)
[2023-08-30 13:10] LABS: Uric Acid 5.5 mg/dL (3.7-7.4)
[2023-08-30 13:32] LABS: Creatinine,Urine Random 50.9 mg/dL; Protein/Creatinine Ratio,Urine 0.236
[2023-08-30 14:13] VITALS: BP 143/86; PULSE 123; RESP 16; TEMP 96.6
== END 2023-08-30 13:48 | disposition home or self-care (01) ==
LOC: FBPOP 12:06
PROVIDERS: ATTEND Obstetrics & Gynecology Obstetrics
DX: O24.419 Gestational diabetes mellitus in pregnancy, unspecified control (principal); O13.9 Gestational [pregnancy-induced] hypertension without significant proteinuria, unspecified trimester; Z79.84 Long term (current) use of oral hypoglycemic drugs; Z79.82 Long term (current) use of aspirin; Z3A.34 34 weeks gestation of pregnancy
CPT/HCPCS: 36415; 59025; 81001; 82570; 83615; 84156; 84450; 84460; 84550; 85025

== ENCOUNTER 2023-09-20 06:00 | Inpatient (IN) | payer BC ==
[2023-09-20] MEDS ORDERED: METHYLERGONOVINE 0.2 MG/ML 1 ML AMP IM PRN (10:30)
[2023-09-20] MEDS ORDERED: OXYTOCIN 30 UNITS/500 ML NS 30 UNIT in SALINE 1 500ML.BAG IV SCH (10:30)
[2023-09-20] MEDS ORDERED: CARBOPROST TROMETHAMINE 250 MCG/ML 1 ML AMP IM PRN (10:30)
[2023-09-20] MEDS ORDERED: TERBUTALINE 1 MG/ML VIAL SQ PRN (10:30)
[2023-09-20] MEDS ORDERED: OXYTOCIN 10 UNIT/ML 1 ML VIAL IM PRN (10:30)
[2023-09-20] MEDS ORDERED: TRANEXAMIC 1,000 MG/100ML-NACL 1,000 MG in EMPTY BAG 1 BAG IV PRN (10:30)
[2023-09-20] MEDS ORDERED: miSOPROStoL 200 MCG TAB PO PRN (10:30)
[2023-09-20 10:42] LABS: Glucose,Whole Blood 87 mg/dL (70-110)
[2023-09-20] MEDS: LACTATED RINGERS 1,000 ML IV SCH (11:00)
[2023-09-20 11:03] LABS: Creatinine,Urine Random 62.2 mg/dL; Protein/Creatinine Ratio,Urine 0.113
[2023-09-20 11:11] LABS: Basophils % (A) 0 %; Eosinophils # (A) 0.1 k/uL (0-0.7); Eosinophils % (A) 1 %; HCT 37.2 % (34.0-46.0); HGB 12.7 gm/dL (11.4-16.0); Lymphocytes % (A) 19 %; MCH 28.2 pg (25.0-35.0); MCHC 34.2 g/dL (31.0-37.0); MCV 82.6 fL (80.0-100.0); Monocytes # (A) 0.6 k/uL (0-1.0); Monocytes % (A) 6 %; Neutrophils # (A) 7.5 k/uL (1.3-7.7); Neutrophils % (A) 72 %; Platelet Count 260 k/uL (150-450); RDW 15.8 % (11.5-15.5); WBC 10.4 k/uL (3.8-10.6)
[2023-09-20] MEDS: OXYTOCIN 30 UNITS/500 ML NS 30 UNIT in SALINE 1 500ML.BAG IV SCH (11:14)
[2023-09-20 11:23] LABS: ALT 30 U/L (4-34); AST 22 U/L (14-36); African American GFR (CKD) >90 (>60 ml/min/1.73 sqM); Blood Urea Nitrogen 15 mg/dL (7-17); LDH 185 U/L (120-246); Non-African American GFR(CKD) >90 (>60 ml/min/1.73 sqM); Uric Acid 5.7 mg/dL (3.7-7.4)
[2023-09-20 11:33] LABS: INR 0.8 (<1.2); Partial Thromboplastin Time 20.9 sec (22.0-30.0); Prothrombin Time 9.4 sec (10.0-12.5)
[2023-09-20] MEDS: ACETAMINOPHEN IV (For NPO) 1,000 MG in EMPTY BAG 1 BAG IVPB STA ×2 (11:58→23:00)
--- NOTE | 2023-09-20 12:49 | P.HPOB ---
History of Present Illness H&P Date: 09/20/23 Chief Complaint: IUP at 37 0/7 weeks , history of x 1,desires TOLAC preeclampsia This is a 33-year-old 6 para 0-2-3-2 at 37-0/7 weeks that presents to labor and delivery from the office with noted elevated blood pressures. Blood pressure initially 160/98, 140/95 with headache for the last 2 days. Patient states blood pressures began to become elevated over the last 2 days and she noted a headache unrelieved with Tylenol. Patient has been noncompliant throughout the . Patient has a history of a prior vaginal delivery at 34-5/7 weeks for preeclampsia, pushed for 4 hours with , 35 weeks and 2 days for transverse presentation, preeclampsia current . Patient has an additional diagnosis of gestational diabetes for which she has been taking metformin irregularly, moderate to poor sugar control. Patient does note good movement, NST was category 1 in the office. She is noting contractions since yesterday. On blood work this patient is a blood type of a positive, rubella status immune, HIV negative, RPR nonreactive, hepatitis B surface antigen negative, group B strep culture is negative. Review of Systems Constitutional: Reports fatigue, Denies fever Ears, nose, mouth and throat: Reports headache Cardiovascular: Denies leg edema Respiratory: Denies dyspnea Gastrointestinal: Reports heartburn, Denies constipation, Denies diarrhea, Denies nausea, Denies vomiting Genitourinary: Reports Past Medical History Past Medical History: Asthma Additional Past Medical History / Comment(s): preeclampsia, kidney stones, GDM, PCOS History of Any Multi-Drug Resistant Organisms: None Reported Past Surgical History: Appendectomy, Section Additional Past Surgical History / Comment(s): breast reduction, fibroadenoma removal Past Anesthesia/Blood Transfusion Reactions: No Reported Reaction Past Psychological History: Anxiety Smoking Status: Never smoker Past Alcohol Use History: None Reported Past Drug Use History: None Reported - Past Family History Father Family Medical History: Diabetes Mellitus, Hypertension Mother Family Medical History: Hypertension Medications and Allergies Home Medications Medication Instructions Recorded Confirmed Type Pnv No.95/Ferrous Fum/Folic AC 1 tab PO DAILY 05/19/18 09/20/23 History [ Multivitamin Tablet] Vitamin B Complex 1 cap PO DAILY 05/19/18 09/20/23 History Aspirin [Children's Aspirin] 81 mg PO DAILY 03/26/19 09/20/23 History valACYclovir HCL [Valtrex] 500 mg PO DAILY PRN 05/25/20 09/20/23 History Labetalol [Trandate] 200 mg PO DAILY 08/30/23 09/20/23 History metFORMIN HCL ER [Glucophage XR] 2,000 mg PO DAILY 08/30/23 09/20/23 History Allergies Allergy/AdvReac Type Severity Reaction Status Date / Time No Known Allergies Allergy Verified 09/20/23 10:25 Exam Osteopathic Statement: *. No significant issues noted on an osteopathic structural exam other than those noted in the History and Physical/Consult. Vital Signs Temp Pulse Resp BP 09/20/23 10:40 97.8 F 88 16 158/87 Intake and Output 09/19/23 09/20/23 09/20/23 22:59 06:59 14:59 Other: Weight 76.204 kg Targeted physical exam is performed this date General is a well-nourished well- developed female in some distress, ill-appearing, breathing is nonlabored, heart has a regular rate and rhythm, abdomen is gravid, heart tones are noted to be category 1 and she is sherry every 4 minutes, on cervical exam she is 3/thick/-2 station amniotomy was performed and clear fluid was obtained. Results Result Diagrams: 09/20/23 10:35 09/20/23 10:35 Abnormal Lab Results - Last 24 Hours (Table) 09/20/23 09/20/23 Range/Units 10:35 10:35 RDW 15.8 H (11.5-15.5) % PT 9.4 L (10.0-12.5) sec APTT 20.9 L (22.0-30.0) sec Assessment and Plan (1) 37 weeks gestation of Current Visit: Yes Status: Acute Code(s): Z3A.37 - 37 WEEKS GESTATION OF SNOMED Code(s): 26943738 (2) H/O section Current Visit: Yes Status: Acute Code(s): Z98.891 - HISTORY OF UTERINE SCAR FROM PREVIOUS SURGERY SNOMED Code(s): 568051282 (3) Preeclampsia Current Visit: No Status: Acute Code(s): O14.90 - UNSPECIFIED PRE-ECLAMPSIA, UNSPECIFIED TRIMESTER SNOMED Code(s): 974207736 Plan: 33-year-old 6 para 0-2-3-2 at 37 weeks that presents with elevated blood pressures. Patient has prior history of severe preeclampsia with 2 prior deliveries. Patient has been taking labetalol inconsistently, based on home blood pressures. Patient's blood pressure is reviewed elevated at home over the last 2 days. Patient did admit to headache unrelieved by Tylenol over the last 2 days and contractions. Patient is admitted for induction of labor with Pitocin, per hospital protocol. Options for analgesia are reviewed epidural when appropriate. My concerns given her first vaginal delivery were discussed throughout the she states understanding and wishes trial of labor. Risks are reviewed including uterine rupture of less than 2% all questions are answered.
[2023-09-20 13:06] LABS: Appearance,Urine Clear (Clear); Bilirubin,Urine Negative (Negative); Blood,Urine Negative (Negative); Color,Urine Colorless; Glucose,Urine (UA) Negative (Negative); Ketones,Urine Negative (Negative); Leukocyte Esterase,Urine Moderate (Negative); Mucus,Urine Rare /hpf; Nitrite,Urine Negative (Negative); Protein,Urine Negative (Negative); RBC,Urine <1 /hpf (0-5); Specific Gravity,Urine 1.016 (1.001-1.035); Squamous Epithelial Cell,Urine 1 /hpf (0-4); Urobilinogen,Urine <2.0 mg/dL (<2.0); WBC,Urine 3 /hpf (0-5)
[2023-09-20] MEDS ORDERED: ROPIVACAINE 5 MG/ML 30 ML VIAL ONE (15:19)
[2023-09-20] MEDS ORDERED: SODIUM CHLORIDE 0.9% 250 ML BAG ONE (15:19)
[2023-09-20] MEDS ORDERED: fentaNYL (PF) 50 MCG/ML 5 ML AMP ONE (15:19)
[2023-09-20] MEDS ORDERED: CALCIUM GLUCONATE 1 GM/10 ML VIAL IV PRN (16:01)
[2023-09-20] MEDS: MAGNESIUM SULFATE-WATER PMX 4 GM in WATER FOR INJECTION 1 100ML.BAG IVPB ONE (16:19)
[2023-09-20] MEDS: MAGNESIUM SULFATE-WATER PMX 20 GM in WATER FOR INJECTION 1 500ML.BAG IV SCH (16:45)
[2023-09-20] MEDS ORDERED: HYDROCORTISONE 2.5% RECTAL CREAM 30 GM TUBE RECTAL PRN (23:59)
[2023-09-20] MEDS ORDERED: SIMETHICONE 80 MG CHEWABLE PO PRN (23:59)
[2023-09-20] MEDS ORDERED: BENZOCAINE/MENTHOL SPRAY 1 GM/SPRAY AEROSOL TOPICAL PRN (23:59)
[2023-09-20] MEDS ORDERED: LANOLIN CREAM 1 GM TUBE TOPICAL PRN (23:59)
[2023-09-20] MEDS ORDERED: diphenhydrAMINE 50 MG CAP PO PRN (23:59)
[2023-09-20] MEDS ORDERED: ZOLPIDEM 5 MG TAB PO PRN (23:59)
[2023-09-20] MEDS ORDERED: diphenhydrAMINE 50 MG/ML 1 ML VIAL IVP PRN ×2 (23:59)
--- NOTE | 2023-09-21 00:05 | P.PROBDLV ---
Vaginal Delivery Note - . Vaginal Delivery Note: 33-year-old 6 para 0-2-3-2 at 37-0/7 weeks presents to labor and delivery from the office with noted elevated blood pressures and headache. Patient states her blood pressures have been slightly elevated over the last few days with headache unrelieved by Tylenol. Patient has a history of severe preeclampsia with her 2 prior deliveries. Patient was admitted to labor and delivery and Pitocin induction of labor was begun. Preeclampsia labs were performed and negative. Amniotomy was performed and clear fluid was obtained. Patient made slow progress with labor but did become uncomfortable and request epidural placement. Epidural was placed without difficulty by the anesthesia department. Patient made good progress toward complete. Once patient was noted to be completely dilated she began pushing and had a normal spontaneous vaginal delivery of a viable male at 2343, weight of 7 pounds 3.7 ounces, Apgars of 8 and 9 at 1 and 5 minutes respectively. After 2-minute delay the umbilical artery was doubly clamped and cut. The placenta was delivered spontaneously intact with a three-vessel cord being noted. The uterus was noted to be firm and below the umbilicus. Barker catheter remained as she was on magnesium gtt. Clear urine was noted throughout the delivery. On inspection the patient's vaginal vault a right labial skin laceration was appreciated this was repaired after instillation of lidocaine with 4-0 chromic in a running fashion. All counts noted be correct x 2 at the end of the delivery. Patient and tolerated delivery well and resting comfortably.
[2023-09-21] MEDS: IBUPROFEN 600 MG TAB PO SCH (00:27)
[2023-09-21] MEDS: LIDOCAINE 0.5% (PF) 5 MG/ML (50 ML SDV) SQ PRN (02:04)
[2023-09-21] MEDS: OXYTOCIN 30 UNITS/500 ML NS 30 UNIT in SALINE 1 500ML.BAG IV SCH (02:06)
[2023-09-21] MEDS: diphenhydrAMINE 25 MG CAP PO PRN (02:55)
[2023-09-21] MEDS: ACETAMINOPHEN TAB 325 MG TAB PO PRN (05:01)
[2023-09-21] MEDS: PRENATAL VIT-IRON-FOLIC ACID 1 EACH TABLET PO SCH (08:04)
[2023-09-21] MEDS: LABETALOL 200 MG TAB PO STA (08:07)
[2023-09-21] MEDS: SENNOSIDES-DOCUSATE SODIUM 1 EACH TAB PO SCH (08:07)
[2023-09-21] MEDS ORDERED: LABETALOL 200 MG TAB PO PRN (09:26)
[2023-09-21 10:38] LABS: Basophils % (A) 0 %; Eosinophils # (A) 0.1 k/uL (0-0.7); Eosinophils % (A) 1 %; HCT 30.8 % (34.0-46.0); HGB 10.7 gm/dL (11.4-16.0); Lymphocytes # (A) 2.4 k/uL (1.0-4.8); Lymphocytes % (A) 17 %; MCH 28.5 pg (25.0-35.0); MCHC 34.6 g/dL (31.0-37.0); MCV 82.3 fL (80.0-100.0); Mean Platelet Volume 8.2; Monocytes # (A) 1.2 k/uL (0-1.0); Monocytes % (A) 8 %; Neutrophils # (A) 10.5 k/uL (1.3-7.7); Neutrophils % (A) 72 %; Platelet Count 236 k/uL (150-450); RBC 3.74 m/uL (3.80-5.40); RDW 15.8 % (11.5-15.5); WBC 14.6 k/uL (3.8-10.6)
[2023-09-21 10:46] LABS: ALT 30 U/L (4-34); AST 32 U/L (14-36); African American GFR (CKD) >90 (>60 ml/min/1.73 sqM); Blood Urea Nitrogen 13 mg/dL (7-17); Non-African American GFR(CKD) >90 (>60 ml/min/1.73 sqM); Uric Acid 6.1 mg/dL (3.7-7.4)
[2023-09-21] MEDS: LABETALOL 100 MG TAB PO SCH (22:55)
[2023-09-21] MEDS: LABETALOL 200 MG TAB PO SCH (22:55)
--- NOTE | 2023-09-22 09:26 | P.PNOBGVD ---
Subjective - Subjective Principal diagnosis: day #2, , preeclampsia with severe pre e Interval history: Patient is feeling well this morning. Magnesium was discontinued around midnight last night. Blood pressures have remained 120s to 70s over 80s. She denies headache this morning. Lochia is moderate. She is breast-feeding without difficulty. Patient reports: Reports appetite normal, Reports voiding normally, Reports pain well controlled, Reports ambulating normally [place]: doing well, nursing well Objective - Latest Vital Signs Latest vital signs: Vital Signs Temp Pulse Resp BP Pulse Ox 09/22/23 08:00 98.1 F 77 16 124/71 09/22/23 04:00 98.0 F 91 16 108/67 09/22/23 00:00 97.2 F L 75 16 125/73 97 09/21/23 22:00 73 16 108/58 98 09/21/23 21:00 77 16 123/60 98 09/21/23 19:52 73 16 110/59 99 09/21/23 19:00 77 16 119/58 09/21/23 18:20 97.1 F L 72 16 119/64 09/21/23 17:30 74 16 119/61 96 09/21/23 16:00 84 16 134/74 96 09/21/23 15:00 97.2 F L 81 16 134/74 96 09/21/23 14:00 16 09/21/23 13:00 96.5 F L 65 16 114/65 98 09/21/23 12:00 96.4 F L 77 16 107/60 98 09/21/23 11:00 86 18 129/74 96 09/21/23 10:00 93 18 129/67 96 Intake and Output 09/21/23 09/22/23 09/22/23 22:59 06:59 14:59 Intake Total 500 Output Total 1600 1500 Balance -1100 -1500 Intake: Intake, IV Titration 500 Amount Magnesium Sulfate-Water 500 Pmx 20 gm In Water For Injection 1 500ml.bag @ 2 GM/HR 50 mls/hr IV .Q10H [facility] Rx#:[id number] Output: Urine 1600 1500 Uretheral (Barker) 600 Other: Voiding Method Indwelling Catheter # Voids 2 - Exam Extremities: Present: normal, edema Abdomen: Present: normal appearance, soft Uterus: Present: normal, firm - Labs Labs: Abnormal Lab Results - Last 24 Hours (Table) 09/21/23 Range/Units 10:21 WBC 14.6 H (3.8-10.6) k/uL RBC 3.74 L (3.80-5.40) m/uL Hgb 10.7 L (11.4-16.0) gm/dL Hct 30.8 L (34.0-46.0) % RDW 15.8 H (11.5-15.5) % Neutrophils # 10.5 H (1.3-7.7) k/uL Monocytes # 1.2 H (0-1.0) k/uL Assessment and Plan (1) 37 weeks gestation of Current Visit: Yes Status: Acute Code(s): Z3A.37 - 37 WEEKS GESTATION OF SNOMED Code(s): 39144339 (2) H/O section Current Visit: Yes Status: Acute Code(s): Z98.891 - HISTORY OF UTERINE SCAR FROM PREVIOUS SURGERY SNOMED Code(s): 917015117 (3) Preeclampsia Current Visit: No Status: Acute Code(s): O14.90 - UNSPECIFIED PRE-ECLAMPSIA, UNSPECIFIED TRIMESTER SNOMED Code(s): 086138799 (4) (vaginal after ) Current Visit: Yes Status: Acute Code(s): O34.219 - MATERNAL CARE FOR UNSP TYPE SCAR FROM PREVIOUS DEL SNOMED Code(s): 077965569 Plan: Patient is doing well . Blood pressures are controlled status post magnesium discontinuation. Will plan to continue to monitor blood pressures closely given preeclampsia with severe features. Consider discharge home tomorrow if blood pressures remain within normal limits. Concerns for preeclampsia given severity of blood pressures prior to delivery discussed with patient and her .
--- NOTE | 2023-09-22 09:27 | P.PNOBGVD ---
Subjective - Subjective Principal diagnosis: day #1,, preeclampsia with severe features Interval history: Patient continues to be on magnesium gtt., blood pressure this morning elevated therefore her home labetalol medication was begun. Patient continues to complain of a headache and some slight dizziness. Barker remains draining clear yellow urine. Patient reports: Reports pain well controlled [place]: doing well Objective - Latest Vital Signs Latest vital signs: Vital Signs Temp Pulse Resp BP Pulse Ox 09/21/23 08:15 100 18 159/96 100 09/21/23 07:30 98.1 F 87 16 168/94 98 09/21/23 06:20 89 12 140/82 09/21/23 05:08 83 12 113/57 97 09/21/23 04:03 93 12 132/71 97 09/21/23 01:54 99 12 131/63 09/21/23 01:41 96.8 F L 111 H 12 128/59 09/21/23 01:25 104 H 12 127/66 09/21/23 01:09 103 H 14 133/68 09/21/23 00:56 109 H 14 143/93 09/21/23 00:41 109 H 15 132/80 09/21/23 00:26 97.9 F 109 H 17 135/56 09/21/23 00:11 107 H 16 148/67 09/20/23 23:54 98.4 F 116 H 20 140/66 97 09/20/23 10:40 97.8 F 88 16 158/87 Intake and Output 09/20/23 09/21/23 09/21/23 22:59 06:59 14:59 Intake Total 1466.667 Output Total 900 1500 700 Balance -900 -33.333 -700 Intake: IV 1000 Intake, IV Titration 466.667 Amount Magnesium Sulfate-Water 466.667 Pmx 20 gm In Water For Injection 1 500ml.bag @ 2 GM/HR 50 mls/hr IV .Q10H [facility] Rx#:[id number] Output: Urine 900 1500 700 Uretheral (Barker) 1500 Other: Voiding Method Indwelling Catheter Indwelling Catheter # Voids 0 - Exam Extremities: Present: normal, edema Uterus: Present: normal, firm - Labs Labs: Abnormal Lab Results - Last 24 Hours (Table) 01/25/24 01/25/24 01/25/24 Range/Units 10:26 10:35 10:35 RDW 15.8 H (11.5-15.5) % PT 9.4 L (10.0-12.5) sec APTT 20.9 L (22.0-30.0) sec Ur Leukocyte Esterase Moderate H (Negative) Urine Mucus Rare H (None) /hpf Assessment and Plan (1) 37 weeks gestation of Current Visit: Yes Status: Acute Code(s): Z3A.37 - 37 WEEKS GESTATION OF SNOMED Code(s): 87341423 (2) H/O section Current Visit: Yes Status: Acute Code(s): Z98.891 - HISTORY OF UTERINE SCAR FROM PREVIOUS SURGERY SNOMED Code(s): 742062788 (3) Preeclampsia Current Visit: No Status: Acute Code(s): O14.90 - UNSPECIFIED PRE-ECLAMPSIA, UNSPECIFIED TRIMESTER SNOMED Code(s): 335824878 (4) (vaginal after ) Current Visit: Yes Status: Acute Code(s): O34.219 - MATERNAL CARE FOR UNSP TYPE SCAR FROM PREVIOUS DEL SNOMED Code(s): 661564388 Plan: Patient is overall doing well . Will plan to continue magnesium GTT for 24 hours postdelivery. Preeclampsia labs will be ordered this morning. Continue close observation of blood pressures in this period.
[2023-09-23 08:39] VITALS: PULSE 70; RESP 17; TEMP 98.3
--- NOTE | 2023-09-23 10:13 | P.DS ---
Providers Date of admission: 09/20/23 10:06 Expected date of discharge: 09/23/23 Attending physician: Gabby Bo Primary care physician: Stated None - Discharge Diagnosis(es) (1) 37 weeks gestation of Current Visit: Yes Status: Acute (2) H/O section Current Visit: Yes Status: Acute (3) Preeclampsia Current Visit: No Status: Acute (4) (vaginal after ) Current Visit: Yes Status: Acute Hospital Course: This is a 33-year-old 6 now para 1-2-3-3 that presented to labor and delivery at 37-0/7 weeks from the office with noted elevated blood pressures and headache. Patient had been being followed for elevated pressures and was on labetalol. Patient was taking it sporadically. Patient has a prior history of severe preeclampsia with her other 2 deliveries. 1 delivered at 34 and 5, #235 and 2 for malpresentation. Patient was admitted and Pitocin augmentation of labor was begun and she was noted to be sherry. Amniotomy was performed and clear fluid was obtained. Magnesium GTT was begun during the labor process. Patient did receive an epidural for pain control during labor. Patient made slow progress through labor but eventually was noted to be complete. Patient began pushing and had a normal spontaneous vaginal delivery of a viable male infant at 2343, weight of 7 pounds 3.7 ounces. Patient did sustain a right labial laceration which was instilled with lidocaine and repaired with 4-0 chromic. Patient's course has been essentially uneventful. Magnesium was discontinued at 24 hours and blood pressures have been noted to be 1 10-1 50s over 80s to 90s. Patient denies signs or symptoms of preeclampsia at this time. Repeat preeclampsia labs were noted to be normal. Patient is counseled on blood pressure control at home. Patient is to follow-up in 1 week for routine blood pressure check. Patient Condition at Discharge: Good Plan - Discharge Summary New Discharge Prescriptions: No Action Vitamin B Complex 1 cap PO DAILY Pnv No.95/Ferrous Fum/Folic AC [ Multivitamin Tablet] 1 tab PO DAILY Aspirin [Children's Aspirin] 81 mg PO DAILY valACYclovir HCL [Valtrex] 500 mg PO DAILY PRN PRN Reason: Cold Sores metFORMIN HCL ER [Glucophage XR] 2,000 mg PO DAILY Labetalol [Trandate] 200 mg PO DAILY Discharge Medication List Pnv No.95/Ferrous Fum/Folic AC [ Multivitamin Tablet] 1 tab PO DAILY 05/19/18 [History] Vitamin B Complex 1 cap PO DAILY 05/19/18 [History] Aspirin [Children's Aspirin] 81 mg PO DAILY 03/26/19 [History] valACYclovir HCL [Valtrex] 500 mg PO DAILY PRN 05/25/20 [History] Labetalol [Trandate] 200 mg PO DAILY 08/30/23 [History] metFORMIN HCL ER [Glucophage XR] 2,000 mg PO DAILY 08/30/23 [History] Follow up Appointment(s)/Referral(s): Gabby Bo DO [Doctor of Osteopathic Medicine] - 1 Week Activity/Diet/Wound Care/Special Instructions: Patient is to monitor blood pressures at home. She does respond well to labetalol therefore if blood pressures are 150s over 90 she is to take 100 mg. Patient states understanding of this plan. Uffh-[id number] ibuprofen 6 or milligrams or 3 tablets every 6 hours as needed for pain. Patient has to follow-up in 1 week for blood pressure check in the office. Patient is to continue to monitor blood pressures at home and call with any questions.
[2023-09-23 10:21] VITALS: BP 158/79
== END 2023-09-23 11:10 | disposition home or self-care (01) | DRG 807 ==
LOC: 4FBP 10:06
PROVIDERS: ADMIT Obstetrics & Gynecology Obstetrics; ATTEND Obstetrics & Gynecology Obstetrics
PROC: 10907ZC Drainage of Amniotic Fluid, Therapeutic from Products of Conception, Via Natural or Artificial Opening (ICD-10-PCS; principal; 2023-09-21)
PROC: 0UQMXZZ Repair Vulva, External Approach (ICD-10-PCS; principal; 2023-09-21)
PROC: 3E033VJ Introduction of Other Hormone into Peripheral Vein, Percutaneous Approach (ICD-10-PCS; principal; 2023-09-21)
PROC: 10E0XZZ Delivery of Products of Conception, External Approach (ICD-10-PCS; principal; 2023-09-21)
DX: O34.211 Maternal care for low transverse scar from previous cesarean delivery (principal); O70.0 First degree perineal laceration during delivery; O14.14 Severe pre-eclampsia complicating childbirth; O24.425 Gestational diabetes mellitus in childbirth, controlled by oral hypoglycemic drugs; N85.8 Other specified noninflammatory disorders of uterus; Z37.0 Single live birth; Z3A.37 37 weeks gestation of pregnancy; O99.284 Endocrine, nutritional and metabolic diseases complicating childbirth; E28.2 Polycystic ovarian syndrome; O34.219 Maternal care for unspecified type scar from previous cesarean delivery; O99.52 Diseases of the respiratory system complicating childbirth; J45.909 Unspecified asthma, uncomplicated; Z87.442 Personal history of urinary calculi; F41.9 Anxiety disorder, unspecified; O99.344 Other mental disorders complicating childbirth; Z79.82 Long term (current) use of aspirin; Z91.199 Patient's noncompliance with other medical treatment and regimen due to unspecified reason; Z28.310 Unvaccinated for COVID-19; Z82.49 Family history of ischemic heart disease and other diseases of the circulatory system
CPT/HCPCS: 81001; 82565; 82570; 83036; 83615; 84156; 84450; 84460; 84520; 84550; 85025; 85610; 85730; 86850; 86900; 86901; 88307